=== PATIENT | female | born 1970 | race Caucasian/White ===

== ENCOUNTER → 2020-09-22 07:37 | Outpatient (CLI) | payer OTHER, SELFPAY ==
[2020-09-22 08:57] LABS: Magnesium 1.8 mg/dl (1.6-2.3); Uric Acid 5.1 mg/dl (2.5-6.2)
[2020-09-22 09:07] LABS: C-Reactive Protein 0.5 mg/L (0-4)
[2020-09-22 09:16] LABS: 25-OH Vitamin D, Total 35.9 ng/mL (30-100)
[2020-09-22 09:17] LABS: Free T4 (Free Thyroxine) 0.83 ng/dl (0.78-2.19)
[2020-09-22 09:19] LABS: Free Thyroxine Index 2.3 ug/dL (5.93-13.13); T4 (Thyroxine) 7.7 ug/dl (5.53-11.0); Triiodothryronine (T3) Uptake 30 % (23.5-40.5)
[2020-09-22 09:27] LABS: Thyroid Stimulating Hormone 2.72 uIU/mL (0.465-4.68)
[2020-09-22 09:45] LABS: Vitamin B12 901 pg/mL (239-931)
[2020-09-22 10:01] LABS: Erythrocyte Sedimentation Rate 16 mm/hr (0-30)
[2020-09-23 10:29] LABS: FSH 47.8 mIU/mL (.); LH 64.9 mIU/mL (.); Triiodothyronine (T3) Free 2.9 pg/mL (2.0-4.4)
[2020-09-23 13:40] LABS: RA Latex Turbid. <10.0 IU/mL (0.0-13.9)
[2020-09-23 16:26] LABS: Antinuclear Antibodies, IFA Positive (.)
[2020-09-24 00:11] LABS: Anti-Cyclic Citrullinated Pept 5 units (0-19)
== END ==
PROVIDERS: Visit Provider Nurse Practitioner
DX: R53.83 Other fatigue (principal); M25.50 Pain in unspecified joint
CPT/HCPCS: 82306; 82607; 83001; 83002; 83735; 84436; 84439; 84443; 84479; 84481; 84550; 85651; 86038; 86140; 86200; 86431

== ENCOUNTER → 2021-08-14 07:53 | Outpatient (CLI) | payer OTHER, SELFPAY ==
[2021-08-14 08:22] LABS: Basophils # 0.1 K/mm3 (0-0.2); Basophils % 1.3 % (0.1-2.0); Eosinophils # 0.2 K/mm3 (0.0-0.4); Hematocrit 40.7 % (37.0-47.0); Hemoglobin 13.4 g/dL (12.2-16.2); Lymphocytes # 2.4 K/mm3 (0.7-4.5); Lymphocytes % 48.7 % (10-50); Mean Corpuscular HGB Conc 32.9 g/dL (31.8-35.4); Mean Corpuscular Hemoglobin 30.5 pg (27.0-31.2); Mean Corpuscular Volume 92.7 fl (81-99); Mean Platelet Volume 8.2 fl (7.4-10.4); Monocytes # 0.2 K/mm3 (0.1-1.0); Monocytes % 4.5 % (1.7-9.3); Neutrophils # 2.1 K/mm3 (1.8-7.8); Neutrophils % 42.5 % (37.0-80.0); Platelet Count 231 K/mm3 (142-424); Red Blood Count 4.39 M/mm3 (4.20-5.40); Red Cell Distribution Width 13.7 % (11.5-17.5); White Blood Count 4.8 K/mm3 (4.8-10.8)
[2021-08-14 09:28] LABS: Chloride 105 mmol/L (98-107); Sodium 140 mmol/L (136-145)
[2021-08-14 09:29] LABS: Potassium 4.6 mmoL/L (3.5-5.1)
[2021-08-14 09:31] LABS: Alanine Aminotransferase 27 U/L (12-78); Albumin Level 4.2 g/dl (3.5-5.0); Albumin/Globulin Ratio 1.8 (1.1-1.8); Alkaline Phosphatase 70 U/L (38-126); Anion Gap 9.6 mEq/L (5-15); Aspartate Amino Transferase 31 U/L (14-36); Bilirubin,Total 0.3 mg/dl (0.2-1.3); Blood Urea Nitrogen 13 mg/dl (7-17); Calcium 9.2 mg/dl (8.4-10.2); Carbon Dioxide 30 mmol/L (22.0-30.0); Cholesterol 255 mg/dl (140-200); Estimated Glomerular Filt Rate 105 ml/min (>60); GFR (African American) 127 ML/MIN (>60); Globulin 2.4 g/dL (1.3-3.2); Glucose 107 mg/dl (74-100); Total Protein,Serum 6.6 g/dl (6.3-8.2); Triglycerides 323 mg/dl (30-150); VLDL Cholesterol 65 mg/dL (0-40)
[2021-08-14 09:32] LABS: Chol/HDL Ratio 7.5 (1-3.5); HDL Cholesterol 34 mg/dl (40-60)
[2021-08-14 10:01] LABS: Thyroid Stimulating Hormone 1.25 uIU/mL (0.465-4.68)
== END ==
PROVIDERS: PCP Nurse Practitioner Family; Visit Provider Nurse Practitioner Family
DX: Z00.00 Encounter for general adult medical examination without abnormal findings (principal)
CPT/HCPCS: 36415; 80053; 80061; 84443; 85025

== ENCOUNTER → 2021-10-14 08:05 | Outpatient (CLI) | payer OTHER, SELFPAY ==
--- NOTE | 2021-10-14 08:13 | MM_ITS ---
PROCEDURE INFORMATION: Exam: MG Bilateral Screening 3D Mammography Exam date and time: 10/14/2021 8:05 AM Age: 51 years old Clinical indication: Screening mammogram. TECHNIQUE: Imaging protocol: Bilateral Screening tomosynthesis and 2D mammography including computer-aided detection (CAD) when performed. COMPARISON: 1. MG DON SCRN MAMMO IMPL W/CAD BILAT - [facility] 01/31/2018 8:34 AM 2. MG SCRN MAMMO IMPL W/CAD BILAT 10/29/2016 3:40 PM 3. MG DIG MAMMO DIAG ALEX IMPLT 04/28/2015 11:14 AM 4. US BREAST LT LIMITED 08/21/2018 3:09 PM FINDINGS: MAMMOGRAPHY: Breast composition: The breast is heterogeneously dense, which may obscure small masses. Mass: Bilateral breast masses, previously assessed with ultrasound, have features suggestive of cysts. No dominant, new, or morphologically suspicious mass has developed to suggest malignancy. Architectural distortion: No new or suspicious architectural distortion. Calcifications: No new or suspicious calcifications are present Asymmetric density: No new or suspicious asymmetric density is present Skin thickening: None. Axillary adenopathy: None. Implants: Subpectoral saline augmentation implants are present. IMPRESSION: No mammographic evidence of malignancy. Recommend annual screening mammography unless otherwise clinically indicated. ASSESSMENT: BI-RADS category 2: Benign
== END ==
PROVIDERS: PCP Nurse Practitioner Family; Visit Provider Nurse Practitioner Family
DX: Z12.31 Encounter for screening mammogram for malignant neoplasm of breast (principal)
CPT/HCPCS: 77063; 77067

== ENCOUNTER 2022-11-03 08:20 | Emergency (ER) | payer BC, SELFPAY ==
[2022-11-03 08:21] VITALS: BP 114/78; PULSE 83; RESP 18; TEMP 36.7; O2SAT 98; BMI 29.2
--- NOTE | 2022-11-03 08:50 | EXP.UTC ---
Discharge Plan Disposition Patient Disposition: Home, Self-Care Condition: Good Referrals Follow up/Referrals: Violet Braxton [Primary Care Provider] - See instructions Activity Restrictions/Add. Instructions Additional Instructions/Restrictions: *Monitor Temp, Over the counter Motrin or Tylenol as directed/as needed Tylenol every 4 hours and Motrin every 6 hours (as long as your family doctor has told you that you can take it) for fever or pain. and straight to ER if unable to lower temp less than 101.0 after medication given *Warm salt water gargles may help to soothe the throat *Throat Lozenges? *Warm fluids like tea with honey may help to soothe the throat? *Sleep elevated *Humidifier/Vaporizer Follow up IMMEDIATELY for new or worsening symptoms or no Noticeable improvement over the next 48-72 hours. 911 for difficulty breathing or swallowing You was given paper prescriptions for augmenting and Prednisone Clinical Impressions Clinical Impression: Sinusitis Qualifiers: Sinusitis location: unspecified location Chronicity: unspecified Qualified Code(s): J32.9 - Chronic sinusitis, unspecified Stand Alone Forms Stand Alone Forms: Work/School Release Instructions Patient Instructions: DI for Sinusitis, Sinusitis Discharge ED Provider: Amy Cruz [facility] General Stated complaint: chest congestion, cough Mode of Arrival: Ambulatory Source of Information: Patient Limitations: No Limitations Time Seen by Provider: 11/03/22 08:51 Description of Symptoms (Recalled from Triage Doc. by RN): Patient reports head and chest congestion since Tuesday. HEENT Symptoms (Recalled from RN notes): Yes Resp Symptoms (Recalled from RN notes): No Skin Symptoms (Recalled from RN notes): No MS Symptoms (Recalled from RN notes): No Functional Status (Recalled from RN notes): wnl History of Present Illness Provider Complaint: Patient state that she started feeling bad on Tuesday with head and chest congestion States that at times she is coughing up some yellowish colored mucous but not sure if it is drianage in the back of her throat States that she has continued to have sinus congestion and pressure that has got worse and over all not feeling well so today when she was still having symptoms and despite trying OTC medications with no relief she came in to get checked Related Data Allergies Allergy/AdvReac Type Severity Reaction Status Date / Time No Known Allergies Allergy Verified 11/03/22 08:37 Worker's Comp Is this a Worker's Comp case?: No [facility] Disclaimer: The information contained in this section may have been updated after the patient was seen, as this information can be updated by other users. Social History Smoking Status: Unknown if ever smoked alcohol intake: never current occupational status: employed Travel in the last 8 weeks: None ROS Obtained: Yes All systems reviewed & no additional complaints except as documented and Yes Systems reviewed as appropriate & no additional complaints except as documented Constitutional Constitutional: Reports system reviewed and no additional complaints, except as documented, Reports as per HPI, Denies fever(s) and Reports headache(s) ENT Ears, Nose, Mouth, and Throat: Reports system reviewed and no additional complaints, except as documented, Reports as per HPI, Reports headache(s), Reports sinus pain, Reports sinus pressure and Reports sore throat Cardiovascular Cardiovascular: Reports system reviewed and no additional complaints, except as documented and Reports as per HPI Respiratory Respiratory: Reports system reviewed and no additional complaints, except as documented, Reports as per HPI, Reports chest congestion and Reports cough Gastrointestinal Gastrointestingal: Reports system reviewed and no additional complaints, except as documented and as per HPI Neurologic Neurologic: Reports headache(s) Physical Exam
[2022-11-03 09:31] VITALS: BP 114/78; PULSE 83; RESP 18; TEMP 36.7; O2SAT 98
== END 2022-11-03 09:32 | disposition home or self-care (01) ==
PROVIDERS: Emergency Provider Nurse Practitioner; PCP Nurse Practitioner Family
DX: J01.90 Acute sinusitis, unspecified (principal)
CPT/HCPCS: 99204; 99212; G0463

== ENCOUNTER 2022-12-17 18:50 | Emergency (ER) | payer BC, SELFPAY ==
[2022-12-17 18:50] VITALS: BP 132/76; PULSE 59; RESP 18; TEMP 36.9; O2SAT 96; BMI 29.2
--- NOTE | 2022-12-17 19:03 | EXP.UTC ---
Discharge Plan Disposition Patient Disposition: Home, Self-Care Condition: Good Prescriptions Prescriptions: New ibuprofen [IBU] 800 mg tablet 800 mg PO Q8HP PRN (Reason: Moderate Pain) Qty: 30 0RF promethazine 25 mg tablet 25 mg PO TID PRN (Reason: nausea and vomiting) Qty: 20 0RF No Action trazodone 50 mg tablet 50 mg PO DAILY Patient Comments: TAKE ONE TABLET BY MOUTH EVERY EVENING venlafaxine 150 mg capsule,extended release 24hr 150 mg PO DAILY Patient Comments: TAKE ONE CAPSULE BY MOUTH EVERY DAY --TAKE WITH FOOD-- topiramate 25 mg tablet 25 mg PO DAILY Patient Comments: TAKE ONE TABLET BY MOUTH EVERY DAY pantoprazole 40 mg tablet,delayed release (DR/EC) 40 mg PO DAILY Patient Comments: TAKE ONE TABLET BY MOUTH EVERY DAY BEFORE breakfast. Referrals Follow up/Referrals: Violet Braxton [Primary Care Provider] - See instructions Activity Restrictions/Add. Instructions Additional Instructions/Restrictions: Drink plenty of fluids. Take tylenol or ibuprofen for pain or fever. Take the medications as directed. Follow up with your regular doctor. GO TO THE ER FOR ANY WORSENING SYMPTOMS The promethazine will make you drowsy, so don't drive or operate heavy machinery after taking it. Clinical Impressions Clinical Impression: Headache Stand Alone Forms Stand Alone Forms: Work/School Release Instructions Patient Instructions: DI for Headache, Ketorolac Injection, Dexamethasone Injection Discharge ED Provider: [place] [facility] [place] General Stated complaint: h/a Time Seen by Provider: 12/17/22 19:03 History of Present Illness Provider Complaint: She c/o migraine headache for the past 3 days. Related Data Home Medications Medication Instructions Recorded Confirmed pantoprazole 40 mg tablet,delayed 40 mg PO DAILY 12/17/22 12/17/22 release topiramate 25 mg tablet 25 mg PO DAILY 12/17/22 12/17/22 trazodone 50 mg tablet 50 mg PO DAILY 12/17/22 12/17/22 venlafaxine 150 mg 150 mg PO DAILY 12/17/22 12/17/22 capsule,extended release 24 hr Previous Rx's Medication Instructions Recorded ibuprofen 800 mg tablet (IBU) 800 mg PO Q8HP PRN Moderate Pain 12/17/22 #30 tabs promethazine 25 mg tablet 25 mg PO TID PRN nausea and 12/17/22 vomiting #20 tabs Allergies Allergy/AdvReac Type Severity Reaction Status Date / Time No Known Allergies Allergy Verified 12/17/22 19:14 [facility] Disclaimer: The information contained in this section may have been updated after the patient was seen, as this information can be updated by other users. Social History Smoking Status: Unknown if ever smoked alcohol intake: never current occupational status: employed Travel in the last 8 weeks: None ROS Obtained: Yes All systems reviewed & no additional complaints except as documented Constitutional Constitutional: Denies chills, Denies fever(s) and Reports headache(s) Eyes Eyes: Denies eye discharge ENT Ears, Nose, Mouth, and Throat: Denies dizziness, Denies otalgia, Reports headache(s) and Denies sore throat Cardiovascular Cardiovascular: Denies chest pain Respiratory Respiratory: Denies shortness of breath, Denies chest congestion, Denies cough, Denies stridor and Denies wheezing Gastrointestinal Gastrointestingal: Denies nausea or vomiting Musculoskeletal Musculoskeletal: Reports system reviewed and no additional complaints, except as documented and Denies arthralgias Integumentary/Breasts Skin/Breast: Denies rash Neurologic Neurologic: Reports as per HPI, Denies dizziness, Reports headache(s) and Denies paresthesias Allergic/Immunologic Allergic/Immunologic: Denies wheezing Physical Exam General General appearance: alert and in no apparent distress Head Head exam: atraumatic, normocephalic and normal inspection Eye Eye exam: Present normal appearance, PER
[2022-12-17 19:31] VITALS: BP 132/76; PULSE 59; RESP 18; TEMP 36.9; O2SAT 96
== END 2022-12-17 19:31 | disposition home or self-care (01) ==
PROVIDERS: Emergency Provider Nurse Practitioner Family; PCP Nurse Practitioner Family
DX: G44.89 Other headache syndrome (principal)
CPT/HCPCS: 96372; 99212; 99214; G0463

== ENCOUNTER 2023-04-11 17:07 | Outpatient (CLI) | payer BC, SELFPAY ==
--- NOTE | 2023-04-11 | MM_ITS ---
PROCEDURE INFORMATION: Exam: MG Bilateral Screening 3D Mammography Exam date and time: 04/11/2023 5:03 PM Age: 53 years old Clinical indication: Screening examination TECHNIQUE: Imaging protocol: Bilateral Screening tomosynthesis and 2D mammography including computer-aided detection (CAD) when performed. COMPARISON: 1. MG MM DIG SC MAMM IMPLANT BI CAD 10/14/2021 8:05 AM 2. MG DNO SCRN MAMMO IMPL W/CAD BILAT - [facility] 01/31/2018 8:34 AM FINDINGS: MAMMOGRAPHY: Breast composition: The breasts are heterogeneously dense, which may obscure small masses. Mass: No new or suspicious masses Architectural distortion: None. Calcifications: No suspicious calcifications. Asymmetric density: None. Skin thickening: None. Axillary adenopathy: None. Implants: Subpectoral saline breast implants are present. IMPRESSION: No mammographic evidence of malignancy. Annual screening is recommended unless otherwise clinically indicated. ASSESSMENT: BI-RADS Category 1: Negative
== END 2023-04-11 23:59 ==
LOC: RAD 17:09
PROVIDERS: PCP Nurse Practitioner Family; Visit Provider Nurse Practitioner Family
DX: Z12.31 Encounter for screening mammogram for malignant neoplasm of breast (principal)
CPT/HCPCS: 77063; 77067

== ENCOUNTER 2024-07-10 16:32 | Outpatient (CLI) | payer OTHER, SELFPAY ==
[2024-07-10 21:42] LABS: Coronavirus 19, PCR Not Detected (NotDetected); Influenza A, PCR Not Detected (NotDetected); Influenza B, PCR Not Detected (NotDetected)
== END 2024-07-10 23:59 | disposition home or self-care (01) ==
LOC: LAB.DROPOF 07-11 12:11
PROVIDERS: PCP Student in an Organized Health Care Education/Training Program; Visit Provider Student in an Organized Health Care Education/Training Program
DX: R05.9 Cough, unspecified (principal); J02.9 Acute pharyngitis, unspecified
CPT/HCPCS: 87636

== ENCOUNTER 2024-09-20 09:40 | Outpatient (CLI) | payer OTHER, SELFPAY ==
--- NOTE | 2024-09-20 09:44 | XR_ITS ---
FINAL REPORT CLINICAL HISTORY: Left shoulder pain May 13 - dragged 15 ft by [place] dog. Pain, limited ROM COMPARISON: None FINDINGS: LEFT SHOULDER Three views of the left shoulder were obtained. There is no acute fracture or dislocation. Visualized joint spaces are normally aligned. Soft tissues are unremarkable. IMPRESSION: No acute bony abnormality. Reviewed, Interpreted and Dictated by Elvin Vargas MD Transcribed by Celena Duque Authenticated and . [facility]
--- OUTSIDE RECORDS SUMMARY | 2024-09-20 09:44 | XMS_ITS | Encounter Summary ---
Author Organization Healthcare Address [address] [place] [address] Care Team Providers Care Flatbed Driver Name Role Phone Violet Braxton APRN Primary Care Provider Reason for Visit * Reason Comments Med Refill Encounter Details Date Type Department Care Team (Late st Contact Info) Description 02/04/2021 Refill [facility] [address] [place] [address] Violet Braxton APRN [address] [place] [address] Social History Tobacco Use Types Packs/Day Years Used Date Smoking Tobacco: Never Comments Unknown Sex and Gender Information Value Date Recorded Sex Assigned at Female 01/04/2022 5:23 PM EDT Legal Sex Female 7:57 PM EDT Gender Identity Female 01/04/2022 5:23 PM EDT Sexual Orientation Straight 01/04/2022 5: 23 PM EDT documented as of this encounter Miscellaneous Notes * Telephone Encounter - Krystle Zimmerman MA - 02/09/2021 12:04 PM EST Scheduled. Has meds till apt documented in this encounter Plan of Treatment Not on file documented as of this encounter Visit Diagnoses Not on filedocumented in this encounter Additional Health Concerns Infection Onset Date Last Indicated Resolved Time COVID-19 Rule-Out 10/26/2023 10/26/2023 10/26/2023 7:24 PM EDT COVID 19 (Confirmed) 10/26/2023 10/26/2023 024 5:23 AM EDT documented as of this encounter Care Teams Flatbed Driver Relationship Specialty Start Date End Date Violet Braxton, [place] [address] [place] [address] PCP - General 07/18/20 documented as of this encounter
--- OUTSIDE RECORDS SUMMARY | 2024-09-20 09:44 | XMS_ITS | Data Portability ---
Author Organization [place] - [facility], Dariel Mathews Address [address] [place] [address] Assessment Encounter Date Assessment Date Assessment LastModified by Organization Details LastModified Time 06/21/2023 06/21/2023 This visit was completed via phone. Patient has provided consent per state regulations. Diagnosis, treatment options, risks of treatment discussed. Medication instructions, precautions, and side effects were reviewed. Instructed to call for any questions or concerns. Seek immediate care if with worsening or persistent symptoms. [email or web address] Not available 06/21/2023 13:33:28 Plan of Treatment Reminders Order Date Submit Date Provider Last Modified By Organization Details Last Modified Time Details Appointments None recorded. Lab None recorded. Referral None recorded. Procedures None recorded. Surgeries None recorded. Imaging None recorded. Medication Orders doxycyclin e monohydrat e 100 mg capsule [address], [address], [place], [address], 13:27:43 Patient TargetsNo targets recorded. Patient Instructions Encounter Date Encounter Id Patient Instructions Last Modified By Organization Details Last Modified Time 06/21/2023 [id number] I hope you feel better soon Niki.Take the antibiotics (doxycycline)as prescribed. To reach us, you can call us at . You can also send us a message via the portal for non-urgent concerns. If your symptoms get worse, please seek urgent care. Follow-up as needed. [email or web address] Not available 06/21/2023 13:36:10 Reason for Referral None Reported. Problems Name Problem SNOMED Code Status Onset Date Resolution Date Notes Provider Name and Address Organization Details Recorded Time Migraine [id number] Active Annabelle Webb RN [address], [place], [address] , [facility] 4 13:08:18 Acute sinusitis 57161377 Active 024 Ivana Christianson MD [address], [facility] [place], [address] , [facility] 4 12:40:10 Problem Notes None recorded. Procedures Surgical History Date Name Laterality Status Provider Name and Address Organization Details Recorded Time 02/05/20 06 Partial Hysterectomy completed Annabelle Webb RN [address], [place], [address], [facility] 06/21/2023 13:06:55 11/06/19 02 Arthroscopic Surgery completed Annabelle Webb RN [address], [place], [address], [facility] 06/21/2023 13:06:55 02/21/19 89 Caesarean Section completed Annabelle Webb RN [address], [place], [address], [facility] 06/21/2023 13:06:55 Imaging Results None recorded. Procedure Notes None recorded. Medical Equipment None Reported. Allergies No known drug allergies Medications Name Sig Start Date Stop Date Status Note LastModified by Organization Details LastModified Time venlafaxine ER 75 mg capsule,ext ended release 24 hr TAKE ONE CAPSULE BY MOUTH EVERY DAY --TAKE WITH FOOD-- active Not Available Not Available No t Available trazodone 50 mg tablet TAKE 1 TABLET BY MOUTH EVERY DAY active Not Available Not Available No t Available ibuprofen 800 mg tablet TAKE ONE TABLET BY MOUTH EVERY 8 HOURS NEEDED FOR MODERATE PAIN active Not Available Not Available No t Available phenazopyri dine 200 mg tablet TAKE 1 TABLET BY MOUTH THREE TIMES A DAY FOR 3 DAYS 06/20 completed Not Available Not Available Not Available prednisone 20 mg tablet TAKE TWO TABLETS BY MOUTH ONCE DAILY FOR 3 DAYS, TAKE ONE TABLET ONCE DAILY FOR 3 DAYS, THEN TAKE 1/2 TABLET ONCE DAILY FOR 3 DAYS --TAKE WITH FOOD-- active Not Available Not Available No t Available venlafaxine ER 150 mg capsule,ext ended release 24 hr TAKE 1 CAPSULE BY MOUTH EVERY DAY--TAKE WITH FOOD-- was taking 75 but just got this rx filled. active Not Available Not Available No t Available topiramate 25 mg tablet TAKE 2 TABLETs BY MOUTH EVERY DAY active Not Available Not Available No t Available rizatriptan 10 mg disintegrat ing tablet TAKE 1 TABLET BY MOUTH NEEDED active Not Available Not Available No t Available doxycycline monohydrate 100 mg capsule Take 1 capsule twice a day by oral route for 7 days. 2023 active Not Available Not Available Not Avai lable pantoprazol e 40 mg tablet,pierre yed release TAKE 1 TABLET BY MOUTH EVERY DAY BEFORE BREAKFAST active Not Available Not Available No t Available promethazin e 25 mg tablet TAKE ONE TABLET BY MOUTH THREE TIMES DAILY NEEDED FOR NAUSEA AND VOMITING active Not Available Not Available No t Available Effexor 75 mg tablet 06/20 completed Not Available Not Available Not Available amoxicillin 875 mg-potassiu m clavulanate 125 mg tablet TAKE ONE TABLET BY MOUTH EVERY TWELVE HOURS FOR 7 DAYS -- FINISH ALL MEDICINE -- 06/20 completed Not Available Not Available Not Available escitalopra m 10 mg tablet TAKE 1 TABLET BY MOUTH EVERY DAY active Not Available Not Available No t Available nitrofurant oin monohydrate /macrocryst als 100 mg capsule TAKE 1 CAPSULE BY MOUTH EVERY 12 HOURS 06/20 completed Not Available Not Available Not Available Vitals Date Recorded Body height Body mass index (BMI) Body weight Systolic And Diastolic Provider Name and Address Organization Details Last Updated DateTime 06/21/2023 160.02 cm 28.3 kg/m2 13827.78 g 120/70 mm[Hg] Annabelle Webb RN [address], [place], [address], [place] [facility] 06/21/2023 13:11:57 Social History Question Answer Notes LastModified by Organizat ion Details LastModified Time Tobacco Smoking Status Never Smoker Annabelle Webb RN [address], [place], [address], [place] [facility] 06/21/2023 13:06:54 How Much Tobacco Do You Chew? None Information not available 06/21/2023 What Is The Highest Grade Or Level Of School You Have Completed Or The Highest Degree You Have Received? [id number] Information not available 06/21/2023 Cigar Smoking No Information not available 06/21/2023 Does Anyone Insult Or Talk Down To You? Never Information not available 06/21/2023 Does Anyone Physically Hurt You At Home? Never Information not available 06/21/2023 Does Anyone Scream Or Curse At You? Never Information not available 06/21/2023 Does Anyone Threaten/bully You With Harm? Never Information not available 06/21/2023 Sleep Habits Decent Information not available 06/21/2023 GENERAL HEALTH -- In General, I Describe My Health As: Excellent [email or web address]-309 Information not available 08/10/2022 GENERAL HEALTH -- Currently, How Would You Rate Your Quality Of Life? Excellent [email or web address]-309 Information not available 08/10/2022 PURPOSE -- For The Most Part, I Am Satisfied With The Balance Between My Work Life And Personal Life. Strongly Agree [email or web address]-309 Information not available 08/10/2022 PURPOSE -- In Most Ways My Life Is Close To My [place]. 7 - Strongly Agree [email or web address]-309 Information not available 08/10/2022 PURPOSE -- The Conditions Of My Life Are Excellent. 7 - Strongly Agree [email or web address] Information not available 08/10/2022 PURPOSE -- I Am Satisfied With My Life. 7 - Strongly Agree [email or web address]-309 Information not available 08/10/2022 PURPOSE -- So Far I Have Gotten The Important Things I Want In Life. 7 - Strongly Agree [email or web address] Information not available 08/10/2022 PURPOSE -- If I Could Live My Life Over, I Would Change Almost Nothing. 6 - Agree [email or web address] Information not available 08/10/2022 STRESS -- In The Last Month, How Often Have You Been Upset Because Of Something That Happened Unexpectedly? 1 - Almost Never [email or web address] Information not available 08/10/2022 STRESS -- In The Last Month, How Often Have You [place] That You Were Unable To Control The Important Things In Your Life? 1 - Almost Never [email or web address] Information not available 08/10/2022 STRESS -- In The Last Month, How Often Have You [place] Nervous And Stressed? 3 - Fairly Often [email or web address] Information not available 08/10/2022 STRESS -- In The Last Month, How Often Have You [place] Confident About Your Ability To Handle Your Personal Problems? 4 - Very Often [email or web address] Information not available 08/10/2022 STRESS -- In The Last Month, How Often Have You [place] That Things Were Going Your Way? 4 - Very Often [email or web address] Information not available 08/10/2022 STRESS -- In The Last Month, How Often Have You Found That You Could Not [place] With All The Things That You Had To Do? 2 - Sometimes [email or web address] Information not available 08/10/2022 STRESS -- In The Last Month, How Often Have You Been Able To Control Irritations In Your Life? 4 - Very Often [email or web address] Information not available 08/10/2022 STRESS -- In The Last Month, How Often Have You [place] That You Were On Top Of Things? 2 - Sometimes [email or web address] Information not available 08/10/2022 STRESS -- In The Last Month, How Often Have You Been Angered Because Of Things That Happened That Were Outside Of Your Control? 1 - Almost Never [email or web address] Information not available 08/10/2022 STRESS -- In The Last Month, How Often Have You [place] Difficulties Were Piling Up So High That You Could Not Overcome Them? 2 - Sometimes [email or web address] Information not available 08/10/2022 SLEEP -- Select All That Apply Regarding Your Sleep I Have A Hard Time Falling Asleep Or Staying Asleep, I Have Restless Sleep, I Have Been Told Or Know That I Snore [email or web address]-309 Information not available 08/10/2022 SLEEP -- How Many Hours Of Sleep Do You Get On Average Each Night? 6 Hours [email or web address]-309 Information not available 08/10/2022 SLEEP -- I Usually Wake Up Feeling Rested. Disagree [email or web address]-309 Information not available 08/10/2022 Nutrition -- What Is The Average Number Of Times Per Week You Dine Out Including In Restaurant, Carry Out, Or Food Delivery? 4 Or More [email or web address] Information not available 08/10/2022 Nutrition -- On Average, How Many 8 Oz. Glasses Of Water Do You Drink Each Day? 3 To 5 [email or web address] Information not available 08/10/2022 Nutrition -- How Often Do You Consume Sugary Food/drinks? Examples Are Dessert, Candy Or Sweetened Drinks (juice, Sweetened Coffee, Soda) 6-7 Days A Week [email or web address] Information not available 08/10/2022 Nutrition -- How Often Do You Eat 5 Or More Fruits/vegetable Servings A Day? 2-3 Days A Week [email or web address] Information not available 08/10/2022 Physical Activity -- How Often Do You Exercise? I Do Not Regularly Exercise [email or web address]-309 Information not available 08/10/2022 Physical Activity -- On Average, How Many Minutes Do You Spend Doing Aerobic Exercise Weekly (walking, Running, Biking, And Other Aerobic Activities)? I Do Not Regularly Exercise [email or web address] Information not available 08/10/2022 Physical Activity -- On Average, How Many Times A Week Do You Do Resistance Or Strengthening Exercises? I Do Not Regularly Engage In Strength Training [email or web address] Information not available 08/10/2022 Physical Activity -- How Many Days A Week Do You Do Stretching Exercises? I Do Not Typically Do Any Stretching Training [email or web address] Information not available 08/10/2022 Tobacco -- Please Indicate The Statement That Fits Your Current Use Of Tobacco (cigarettes, Ecigarettes/vapin g, Smokeless Tobacco, Cigars, Pipes, Light Cigarettes)? I Have Never Used Tobacco Products [email or web address] Information not available 08/10/2022 Tobacco -- If You Currently Use Tobacco, On Average; How Many Cigarettes, Cigars, Etc. Per Day? 0 [email or web address]-309 Information not available 08/10/2022 TOBACCO -- If You Use Tobacco, How Long Have You Been Using Tobacco? (in Years) 0 [email or web address]-309 Information not available 08/10/2022 RISK BEHAVIOR -- How Often Do You Wear A Seat Belt In A Motor Vehicle? Always [email or web address]-309 Information not available 08/10/2022 RISK BEHAVIOR -- How Often Do You Wear A Helmet When Necessary, Such As; Riding A Motorcycle, Bicycle, Or Recreation Vehicle Or While Participating In High-impact Sports? Never [email or web address]-309 Information not available 08/10/2022 RISK BEHAVIOR -- Do You Have A Smoke Detector In Your Home? Yes [email or web address]-309 Information not available 08/10/2022 RISK BEHAVIOR -- Do You Have A Carbon Monoxide Detector In Your Home? Yes [email or web address]-309 Information not available 08/10/2022 RISK BEHAVIOR -- How Often Do You Protect Your Skin From Sun Exposure When Outside (for Example, Sunscreen With A SPF 15 Or Higher And/or Protective Clothing)? Some Of The Time [email or web address]-309 Information not available 08/10/2022 RISK BEHAVIOR -- How Often Do You Have A Drink Containing Alcohol? 2 To 3 Times A Week [email or web address]-309 Information not available 08/10/2022 RISK BEHAVIOR -- How Many Drinks Containing Alcohol Do You Have On A Typical Day When You Are Drinking? 1 Or 2 [email or web address]-309 Information not available 08/10/2022 RISK BEHAVIOR -- In The Past Year, How Often Have You Used An Illegal Drug Or A Prescription Drug For A Non-medical Reason? Never [email or web address]-309 Information not available 08/10/2022 READINESS TO CHANGE -- Improve My Overall Health Planning A Change In The Next 6 Months [email or web address]-309 Information not available 08/10/2022 READINESS TO CHANGE -- If There Was One Thing You Could Work On To Improve The Way You Feel And Function What Would You Choose Grieve - Loss Of Step-dad 2018 & Mom 2021 [email or web address] Information not available 08/10/2022 FINANCIAL -- I Could Handle A Major Unexpected Expense 4 - Not At All [email or web address]-309 Information not available 08/10/2022 FINANCIAL -- I Am Securing My Financial Future Somewhat [email or web address]-309 Information not available 08/10/2022 FINANCIAL -- I Have Money Left Over At The End Of The Month 2 - Somewhat [email or web address]-309 Information not available 08/10/2022 SOCIAL DETERMINANTS -- I Have A Close Friend, Family Member Or Support System I Can Talk To About Important Issues. Strongly Agree [email or web address]-309 Information no t available 08/10/2022 SOCIAL DETERMINANTS -- How Often Do You Feel Lonely? Rarely API-309 Information not available 08/10/2022 SOCIAL DETERMINANTS -- During The Past Year, Have You Worried About The Following? Select All That Apply. None Of These Worries Apply [email or web address]-309 Information not available 08/10/2022 How Often Do You Have Six Or More Drinks On One Occasion? Never [email or web address]-309 Information not available 08/10/2022 Have You Ever Served In The ? No Information not available 06/21/2023 What Was The Date Of Your Most Recent Tobacco Screening? 06/21/2023 Information not available 06/21/2023 Has Tobacco Cessation Counseling Been Provided? No Information not available 06/21/2023 Sex: Unknown Functional Status Question Answer Note LastModified by Organizat ion Details LastModified Time Do you or have you ever used any other forms of tobacco or nicotine? No Information not available 06/21/2023 What is your level of alcohol consumption? Occasional Information not available 06/21/2023 Do you or have you ever used smokeless tobacco? Never used smokeless tobacco Information not available 06/21/2023 What is your occupation? RN Information not available 06/21/2023 Mental Status None recorded. Family History Relationship Description Onset Age of this Age Resolved Age Notes LastModified by Organization Details LastModified Time Mother Chronic obstructive pulmonary disease astrate Not available 2023 13:06:53 Mother Malignant neoplastic disease astrate Not available 2023 13:06:53 Father Chronic obstructive pulmonary disease astrate Not available 2023 13:06:53 Medical History No medical history recorded. Gynecological HistoryNo gynecological history recorded. Obstetrics History GPAL:G 0 P 0 0 0 0 Past Encounters Encounter ID Performer Location Encounter Start Date Encounter Closed Date Diagnosis/Indication Diagnosis SNOMED-CT Code Diagnosis ICD10 Code Diagnosis Note [id number] [facility] [address], [place] [address] [place] [address] 4 08/11/2022 17:58:47 08/11/2022 18:56:24 [id number] Ivana Christianson MD [facility] [address], [place] [address] [place] [address] 4 06/21/2023 13:04:51 06/21/2023 13:30:14 Acute sinusitis [id number] J01.90 -sinusitis x 2 weeks, continue symptomati c treatment- can start antibiotic s-follow-u p as needed or seek urgent care if getting worse Health Concerns Section Related Observation LastModified by Organization Detai ls LastModified Time None Recorded Concern Status LastModified by Organization Details LastModified Time None Recorded Advance Directives Directive None Recorded Payers Insurance Date Sequence Insurance Name Policy Number Policy Estevez Covered Member ID Estevez Member ID Guarantor Name 09/12/2023 1 [facility] (PPO) [id number] 2 Jody Vega [id number] Jody Vega 09/12/2023 1 [facility] - (PPO) [id number] 2 Jody Vega [id number] Jody Vega Notes Date Note Type Note Provider Name and Address Organization Details Recorded Time 06/21/2023 text/html TELEPHONIC CONSULTATION Patient name, , and emergency contact verified. Patient Location -[place] Provider location - [place]. Telephonic questionnaires reviewed. Telemedicine limitations were discussed with the patient. The patient verbally consented to consultation and treatment with telehealth today written consent on file. 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
--- OUTSIDE RECORDS SUMMARY | 2024-09-20 09:44 | XMS_ITS | Encounter Summary ---
Author Organization Healthcare Address [address] [place] [address] Care Team Providers Care Irs Agent Name Role Phone Violet Braxton APRN Primary Care Provider [phone] Reason for Visit * Reason Onset Date Comments Med Refill 08/02/2024 Encounter Details Date Type Department Care Team (Late st Contact Info) Description 08/02/2024 Refill [facility] [address] [place] [address] Violet Braxton APRN [address] [place] [address] Social History Tobacco Use Types Packs/Day Years Used Date Smoking Tobacco: Never Passive Smoke Exposure: Past Smokeless Tobacco: Never Alcohol Use Standard Drinks/Week Comments Not Currently 0 (1 standard drink = 0.6 oz pur e alcohol) Humiliation, Afraid, Rape, and Kick questionnair e Answer Date Recorded Within the last year, have y ou been afraid of your partner or ex-partner? No 05/22/2024 Within the last year, have y ou been humiliated or emotionally abused in other ways by your partner or ex-partner? No Within the last year, have y ou been kicked, hit, slapped, or otherwise physically hurt by your partner or ex-partner? No 05/22/2024 Within the last year, have y ou been raped or forced to have any kind of sexual activity by your partner or ex-partner? No 05/22/2024 PHQ-2 Answer Date Recorded Patient Health Questionnaire-2 Score 2 05/24/2024 Hunger Vital Sign Answer Date Recorded Within the past 12 months, y ou worried that your food would run out before you got the money to buy more. Never true 05/23/19 25 Within the past 12 months, t he food you bought just didn't last and you didn't have money to get more. Never true 05/22/2024 PRAPARE - Transportation Answer Date Re corded In the past 12 months, has l ack of transportation kept you from medical appointments or from getting medications? No 05/05 In the past 12 months, has l ack of transportation kept you from meetings, work, or from getting things needed for daily living? No 05/22/2024 Housing Stability Vital Sign Answer Teo e Recorded In the last 12 months, was t here a time when you were not able to pay the mortgage or rent on time? No 09/02/2023 In the last 12 months, how many places have you lived? 1 09/02/2023 In the last 12 months, was t here a time when you did not have a steady place to sleep or slept in a chcf (including now)? No 09/02/2023 PHQ-9 Answer Date Recorded Patient Health Questionnaire-9 Score 2 05/24/2024 Housing Stability Vital Sign Answer Teo e Recorded In the last 12 months, was t here a time when you were not able to pay the mortgage or rent on time? No 05/22/2024 In the past 12 months, how m any times have you moved where you were living? 0 05/22/2024 At any time in the past 12 m [facility], were you homeless or living in a chcf (including now)? No 05/22/2024 Utilities Answer Date Recorded In the past 12 months has th e iOpener, gas, oil, or water company threatened to shut off services in your home? No 05/22/2024 PHQ-2A Answer Date Recorded Patient Health Questionnaire-2 Score 3 08/19/2022 Comments Unknown Sex and Gender Information Value Date Recorded Sex Assigned at Female 01/04/2022 5:23 PM EDT Legal Sex Female 7:57 PM EDT Gender Identity Female 01/04/2022 5:23 PM EDT Sexual Orientation Straight 01/04/2022 5: 23 PM EDT documented as of this encounter Plan of Treatment Not on file documented as of this encounter Visit Diagnoses Not on filedocumented in this encounter Additional Health Concerns Assessment Noted Time PHQ-9 Depression Total Score: 2 05/25/19 25 4:26 PM EDT A fall risk assessment has been complete d for the patient 03/04/2021 1:38 PM EST A Body Mass Index follow-up plan has been documented for the patient 05/24/2024 5:07 PM EDT documented as of this encounter Care Teams Irs Agent Relationship Specialty Start Date End Date Violet Braxton APRN [address] [place] [address] PCP - General 07/18/20 documented as of this encounter
--- OUTSIDE RECORDS SUMMARY | 2024-09-20 09:44 | XMS_ITS | Encounter Summary ---
Author Organization Healthcare Address [address] [place] [address] Care Team Providers Care Miner Placer Name Role Phone Violet Braxton APRN Primary Care Provider [phone] Reason for Visit * Reason Comments Med Refill Encounter Details Date Type Department Care Team (Late st Contact Info) Description 01/24/2021 [facility]ill [facility] [address] [place] [address] Violet Braxton APRN [address] [place] [address] Social History Tobacco Use Types [...] documented as of this encounter Care Teams Miner Placer Relationship Specialty Start Date End Date Violet Braxton APRN [address] [place] [address] PCP - General 07/18/20 documented as of this encounter
--- OUTSIDE RECORDS SUMMARY | 2024-09-20 09:44 | XMS_ITS | Encounter Summary ---
Author Organization Healthcare Address [address] [place] [address] Care Team Providers Care Voltmeter Operator Name Role Phone Violet Braxton APRN Primary Care Provider Reason for Visit * Reason Comments Med Refill Encounter Details Date Type Department Care Team (Late st Contact Info) Description 03/10/2022 Refill [facility] [address] [place] [address] Violet Braxton APRN [address] [place] [address] Generalized anxiety disorder Social History Tobacco Use Types Packs/Day Years Used Date Smoking Tobacco: Never Smokeless Tobacco: Never PHQ-2 Answer Date Recorded Patient Health Questionnaire-2 Score 6 03/04/2021 Comments Unknown Sex and Gender Information Value Date Recorded Sex Assigned at Female 01/04/2022 5:23 PM EDT Legal Sex Female 7:57 PM EDT Gender Identity Female 01/04/2022 5:23 PM EDT Sexual Orientation Straight 01/04/2022 5: 23 PM EDT documented as of this encounter Miscellaneous Notes * Telephone Encounter - Jade Crocker Tejas - 03/11/2022 8:20 AM EST Per protocol, 3 medication(s), buspirone, pantoprazole and trazodone, has been approved for 90 day supply with 0 refill(s) to Clinic pharmacy. documented in this encounter Plan of Treatment Not on file documented as of this encounter Visit Diagnoses Diagnosis Generalized anxiety disorder documented in this encounter Additional Health Concerns Infection Onset Date Last Indicated Resolved Time COVID-19 Rule-Out 10/26/2023 10/26/2023 10/26/2023 7:24 PM EDT COVID 19 (Confirmed) 10/26/2023 10/26/2023 024 5:23 AM EDT Assessment Noted Time PHQ-9 Depression Total Score: 021 1:38 PM EST A fall risk assessment has been complete d for the patient 03/04/2021 1:38 PM EST documented as of this encounter Care Teams Voltmeter Operator Relationship Specialty Start Date End Date Violet Braxton APRN [address] [place] [address] PCP - General 07/18/20 documented as of this encounter
--- OUTSIDE RECORDS SUMMARY | 2024-09-20 09:44 | XMS_ITS | Clinical Summary ---
Author Organization Healthcare Address [address] [place] [address] Care Team Providers Care Natural Fabricator Name Role Phone Violet Braxton APRN Primary Care Provider [phone] Allergies No known active allergies Medications Multiple Vitamins-Minerals (MULTI FOR HER 50+ PO) 0 Active Black Pepper-Turmeric (Turmeric Curcumin) 5-1000 MG capsule 0 Active diclofenac (Voltaren) 1 % topical gel Voltaren 1 % topical gel APPLY 2 GRAMS TO THE AFFECTED AREA(S) BY TOPICAL ROUTE 4 TIMES PER DAY Active triamcinolone (Nasacort Allergy 24HR) 55 MCG/ACT nasal inhaler 1 (one) time each day. Active ondansetron (Zofran) 8 MG tablet TAKE ONE TABLET BY MOUTH EVERY 8 HOURS NEEDED FOR NAUSEA AND VOMITING 30 tablet 1 5 Active topiramate (Topamax) 50 MG tabletIndications:C hronic migraine without aura without status migrainosus, not intractable Take 1 tablet (50 mg) by mouth in the morning and 1 tablet (50 mg) before bedtime. 180 tablet 3 5 05/25/19 26 Active traZODone (Desyrel) 50 MG tablet Take 1 tablet (50 mg) by mouth daily. 90 tablet 3 5 05/25/19 26 Active busPIRone (Buspar) 10 MG tablet Take 1 tablet (10 mg) by mouth in the morning and 1 tablet (10 mg) in the evening and 1 tablet (10 mg) before bedtime. 270 tablet 3 5 05/25/19 Active venlafaxine XR (Effexor-XR) 150 MG 24 hr capsuleIndications: Generalized anxiety disorder Take 1 capsule (150 mg) by mouth daily. Take with food. 90 capsule 3 5 05/25/19 Active pantoprazole (Protonix) 40 MG EC tablet Take 1 tablet (40 mg) by mouth daily before breakfast. 90 tablet 3 5 05/25/19 26 Active montelukast (Singulair) 10 MG tabletIndications:U pper respiratory tract infection, unspecified type,Allergic rhinitis, unspecified seasonality, unspecified trigger Take 1 tablet (10 mg) by mouth nightly. 90 tablet 3 5 05/25/19 Active escitalopram (Lexapro) 10 MG tabletIndications:M ajor depressive disorder, recurrent, moderate (CMS/HCC) Take 1 tablet (10 mg) by mouth daily. 90 tablet 3 5 05/25/19 Active rizatriptan BRAKE ENGINEER (Maxalt-BRAKE ENGINEER) 10 MG disintegrating tablet Dissolve 1 tablet on the tongue as needed for migraine. 9 tablet 3 5 Active Active Problems No known active problems Encounters Date Type Department Care Team Description 08/02/2024 Refill [facility] Medicine [address] [place] [address] Violet Braxton, CLAYTON from Last 3 Months Social History Tobacco Use Types Packs/Day Years Used Date Smoking Tobacco: Never Passive Smoke Exposure: Past Smokeless Tobacco: Never Tobacco Cessation:Counseling Given: Not Answered Alcohol Use Standard Drinks/Week Comments Not Currently [...] money to buy more. Never true 05/23/19 Within the past 12 months, t he [...] place to sleep or slept in a [facility] (including now)? No 09/02/2023 PHQ-9 Answer Date [...] any time in the past 12 m [facility], were you homeless or living in a m[facility]p (including now)? No 05/22/2024 Utilities Answer Date Recorded In the past 12 months has th e electric, gas, oil, or water company threatened to shut off services in your home? No 05/22/2024 PHQ-2A Answer Date Recorded Patient Health Questionnaire-2 Score 3 08/19/2022 Comments Unknown Sex and Gender Information Value Date Recorded Sex Assigned at Female 01/04/2022 5:23 PM EDT Legal Sex Female 7:57 PM EDT Gender Identity Female 01/04/2022 5:23 PM EDT Sexual Orientation Straight 01/04/2022 5: 23 PM EDT Last Filed Vital Signs Vital Sign Reading Time Taken Comments Blood Pressure 110/70 05/24/2024 4:22 PM EDT Pulse 77 05/24/2024 4:22 PM EDT Temperature 36.6 C (97.8 F) 05/24/2024 4:22 PM EDT Respiratory Rate 16 05/24/2024 4:22 PM EDT Oxygen Saturation 96% 05/24/2024 4:22 PM EDT Inhaled Oxygen Concentration - - Weight 78 kg (172 lb) 05/24/2024 4:22 PM EDT Height 160 cm (5' 3 ) 05/24/2024 4:22 PM EDT Body Mass Index 30.47 05/24/2024 4:22 PM EDT Plan of Treatment Health Maintenance Due Date Last Done Comments [facility]-HIV Screening 1968 [facility]-Hepatitis C Screening 1968 [facility]-Infant/Child/Adol SDOH Screenings 1970 [facility]-Hepatitis B Vaccines (1 of 3 - 19+ 3-dose series) 01/11/1987 [facility]-Pap Smear 01/11/1989 [facility]-Cervical Cancer Screening 01/11/1998 [facility]-HPV/Cotest 01/11/1998 CT Colonography 01/11/2013 [facility]-DNA 01/11/2013 FIT 01/11/2013 FOBT 01/11/2013 Sigmoidoscopy 01/11/2013 [facility]-Pneumococcal Vaccine: 50+ Years (1 of 1 - PCV) 01/11/2018 [facility]-Zoster Vaccines (1 of 2) 01/11/2018 [facility]-NEFMX-80 Vaccine (4 - season) 2023 12/30/2021, 06/07/2020, 05/10/2020 [facility]-Influenza Vaccine (#1) 11/05/202402/26, 05/16/2023, 11/29/2017, Additional history exists [facility]- SDOH Screenings 11/22/2024 [facility]-Adult SDOH Screenings 11/22/2024 05/22/2024 [facility]-Breast Cancer Screening 04/11/2025 04/11/2023, 1 04/12/2017 [facility]-Depression Screening 05/24/2025 05/24/2024, 05/06 Colonoscopy 03/02/2028 03/02/2018 [facility]-Colorectal Cancer Screening 03/02/2028 [facility]-DTaP,Tdap,and Td Vaccines (3 - Td or Tdap) 11/29/2031 11/28/2021, 08/18/2016 [facility]-Hepatitis A Vaccines Aged Out 11/29/2017 No longer eligible based on patient's age to complete this topic [facility]-Diabetes: Hemoglobin A1C Discontinued 09/02/2023, 08/19/2022 [facility]-Obesity Intervention Completed 025, 10/26/2023, 09/02/2023, Additional history exists HPV Vaccines Aged Out No longer eligi ble based on patient's age to complete this topic [facility]-HIB Vaccines Aged Out No longer e ligible based on patient's age to complete this topic [facility]-IPV Vaccines Aged Out No longer e ligible based on patient's age to complete this topic [facility]-Rotavirus Vaccines Aged Out No lo nger eligible based on patient's age to complete this topic Procedures Procedure Name Priority Date/Time Associated Diagnosis Comments HEMOGLOBIN A1C Routine 09/02/2023 9:24 AM EDT Annual physical exam MAMMOGRAPHY EXTERNAL RESULTS 04/11/2023 COLONOSCOPY EXTERNAL RESULT 03/02/2018 from Last 3 Months or Most Recently Relevant to Health Maintenance Results * (ABNORMAL) Hemoglobin A1c (09/02/2023 9:24 AM EDT) Hemoglobin A1c 5.9(H) <5.7 % 09/02/2023 1:20 PM EDT [facility] Blood Venous blood specimen / Unknown Venipuncture / Unknown 09/02/2023 9:24 AM EDT 09/02/2023 9:24 AM EDT Narrative [facility] - 09/02/2023 1:20 PM EDT HA1C Interpretive Data: Diagnosis of Diabetes: Diabetic > or = 6.5% Pre-diabetic 5.7 to 6.4% Non-diabetic < or = 5.6% Glycemic Targets for Type I and Type II Diabetics: Non- Adults <7.0% Adults <6.0% Children and Adolescents <7.5% Source: [place] [employer]. Standards of medical care in diabetes,2017. Diabetes Care.2017:40 (suppl 1):S1-S135. HbA1c assay performed by an ion-exchange chromatography method that is certified traceable to the DCCT. Violet Braxton SPOT BILLING CLERK LAB BLOOD ORDERABLES Final Result Performing Organization Address City/State/[facility] Co de Phone Number [facility] [address] [place] [address] * MAMMOGRAPHY EXTERNAL RESULTS (04/11/2023) Anatomical Region Laterality Modality Mammography Narrative 04/11/2023 Ordered by an unspecified provider. us External Provider IMG BI PROCEDURES Final Result * COLONOSCOPY EXTERNAL RESULT (03/02/2018) Anatomical Region Laterality Modality Endoscopy Narrative 03/02/2018 Ordered by an unspecified provider. us External Provider GI PROCEDURE ORDERABLES Final Result from Last 3 Months or Most Recently Relevant to Health Maintenance Insurance [facility] Care Teams Natural Fabricator Relationship Specialty Start Date End Date Violet Braxton, CLAYTON [address] [place] [address] PCP - General 07/18/20
--- OUTSIDE RECORDS SUMMARY | 2024-09-20 09:44 | XMS_ITS | Encounter Summary ---
Author Organization Healthcare Address [address] [place] [address] Care Team Providers Care Ammunition Components Inspector Name Role Phone Violet Braxton APRN Primary Care Provider Reason for Visit * Reason Comments Med Refill Encounter Details Date Type Department Care Team (Late st Contact Info) Description 12/19/2020 Refill Family [facility] Community Medicine [address] [place] [address] Violet Braxton APRN [address] [place] [address] Social History Tobacco Use Types [...] documented as of this encounter Care Teams Ammunition Components Inspector Relationship Specialty Start Date End Date Violet Braxton APRN [address] [place] [address] PCP - General 07/18/20 documented as of this encounter
== END 2024-09-20 23:59 | disposition home or self-care (01) ==
LOC: RAD 09:41
PROVIDERS: PCP Nurse Practitioner Family; Visit Provider Physician Assistant
DX: M25.512 Pain in left shoulder (principal); W54.8XXA Other contact with dog, initial encounter
CPT/HCPCS: 73030

== ENCOUNTER 2024-09-27 07:13 | Outpatient (CLI) | payer OTHER, SELFPAY ==
--- NOTE | 2024-09-27 07:00 | MR_ITS ---
FINAL REPORT TECHNIQUE: Multiplanar MR of the left shoulder without contrast CLINICAL HISTORY: Left Shoulder Pain. limited rom. weakness in arm. shoulder pain. symptoms since being pulled by dog 2 months ago. COMPARISON: None FINDINGS: Marrow signal: Unremarkable Glenohumeral joint: Physiologic effusion. No significant degenerative changes. AC joint: No obvious impingement. No significant hypertrophic changes. Rotator cuff: Tendinosis of the supraspinatus and infraspinatus tendons without evidence of tear. Labrum: Sublabral foramen of the anterior labrum. No evidence of labral tear. Biceps tendon: Intra-articular long head biceps tendon intact. IMPRESSION: No evidence of rotator cuff or labral tear. Reviewed, Interpreted and Dictated by Elvin Vargas MD Transcribed by Susy Swan Authenticated and [facility]
--- OUTSIDE RECORDS SUMMARY | 2024-09-27 07:16 | XMS_ITS | Encounter Summary ---
Author Organization Healthcare Address [address] [place] [address] Care Team Providers Care Product Marketing Manager Name Role Phone Violet Braxton APRN Primary Care Provider [phone] Reason for Visit * Reason Onset Date Comments Med Refill 08/02/2024 Encounter Details Date Type Department Care Team (Late st Contact Info) Description 08/02/2024 [facility] [facility] [address] [place] [address] Violet Braxton APRN [address] [place] [address] Social History Tobacco Use Types [...] place to sleep or slept in a fci (including now)? No 09/02/2023 PHQ-9 Answer Date [...] any time in the past 12 m [facility], were you homeless or living in a fci (including now)? No 05/22/2024 Utilities Answer Date Recorded In the past 12 months has th e [employer], gas, oil, or water company threatened to [...] documented as of this encounter Care Teams Product Marketing Manager Relationship Specialty Start Date End Date Violet Braxton APRN [address] [place] [address] PCP - General 07/18/20 documented as of this encounter
--- OUTSIDE RECORDS SUMMARY | 2024-09-27 07:16 | XMS_ITS | Encounter Summary ---
Author Organization Healthcare Address [address] [place] [address] Care Team Providers Care Leasing Consultant Name Role Phone Violet Braxton APRN Primary Care Provider Reason for Visit * Reason Comments Med Refill Encounter Details Date Type Department Care Team (Late st Contact Info) Description 02/04/2021 Refill [facility] [address] [place] [address] Violet Braxton APRN [address] [place] [address] Social History Tobacco Use Types [...] documented as of this encounter Care Teams Leasing Consultant Relationship Specialty Start Date End Date Violet Braxton, CLAYTON [address] [place] [address] PCP - General 07/18/20 documented as of this encounter
--- OUTSIDE RECORDS SUMMARY | 2024-09-27 07:16 | XMS_ITS | Data Portability ---
Author Organization [place] - [facility], Dariel Mathews Address [address] [place] [address] Assessment Encounter Date Assessment Date Assessment LastModified [...] monohydrat e 100 mg capsule [address], [address], [place], [address], 13:27:43 Patient TargetsNo targets recorded. Patient Instructions Encounter Date Encounter Id Patient Instructions Last Modified By Organization Details Last Modified Time 06/21/2023 [id number] I hope you feel better soon [email or web address] [...] and Address Organization Details Recorded Time Migraine [id number] Active Annabelle Webb RN [address], [place], [address] , [facility] 4 13:08:18 Acute sinusitis [id number] Active 024 Ivana Christianson MD [address], [place], [address] , [facility] 4 12:40:10 Problem Notes None recorded. Procedures Surgical History Date Name Laterality Status Provider Name and Address Organization Details Recorded Time 02/05/20 06 Partial Hysterectomy completed Annabelle Webb RN [address], [place], [address], [facility] 06/21/2023 13:06:55 11/06/19 02 Arthroscopic Surgery completed Annabelle Webb RN [address], [place], [address], [facility] 06/21/2023 13:06:55 02/21/19 89 Caesarean Section completed Annabelle Webb RN [address], [place], [address], [facility] 06/21/2023 13:06:55 Imaging Results None recorded. Procedure [...] Updated DateTime 06/21/2023 160.02 cm 28.3 kg/m2 04383.78 g 120/70 mm[Hg] Annabelle Webb RN [address], [place], [address], [place] [facility] 06/21/2023 13:11:57 Social History Question Answer Notes LastModified by Organizat ion Details LastModified Time Tobacco Smoking Status Never Smoker Annabelle Webb RN [address], [place], [address], [place] [facility] 06/21/2023 13:06:54 How Much Tobacco Do You Chew? None Information not available 06/21/2023 What Is The Highest Grade Or Level Of School You Have Completed Or The Highest Degree You Have Received? [id number] Information not available 06/21/2023 Cigar Smoking No [...] Ways My Life Is Close To My [place]. 7 - Strongly Agree [email or web address] Information not [...] The Last Month, How Often Have You [place] That You Were Unable To Control The Important Things In Your Life? 1 - Almost Never [email or web address] Information not available 08/10/2022 STRESS -- In The Last Month, How Often Have You [place] Nervous And Stressed? 3 - Fairly Often [email or web address] Information not available 08/10/2022 STRESS -- In The Last Month, How Often Have You [place] Confident About Your Ability To Handle Your Personal Problems? 4 - Very Often [email or web address] Information not available 08/10/2022 STRESS -- In The Last Month, How Often Have You [place] That Things Were Going Your Way? 4 - Very Often [email or web address] Information not available 08/10/2022 STRESS -- In The Last Month, How Often Have You Found That You Could Not Prospect With All The Things That You Had To Do? 2 - Sometimes [email or web address] Information not available 08/10/2022 STRESS -- In The Last Month, How Often Have You Been Able To Control Irritations In Your Life? 4 - Very Often [email or web address] Information not available 08/10/2022 STRESS -- In The Last Month, How Often Have You [place] That You Were On Top Of Things? 2 - Sometimes [email or web address] Information not available 08/10/2022 STRESS -- In The Last Month, How Often Have You Been Angered Because Of Things That Happened That Were Outside Of Your Control? 1 - Almost Never [email or web address] Information not available 08/10/2022 STRESS -- In The Last Month, How Often Have You [place] Difficulties Were Piling Up So High That [...] SNOMED-CT Code Diagnosis ICD10 Code Diagnosis Note [id number] ANDREW [facility] [address], [place] [address] [place] [address] 4 08/11/2022 17:58:47 08/11/2022 18:56:24 [id number] Ivana Christianson MD [facility] [address], [place] [address] [place] [address] 4 06/21/2023 13:04:51 06/21/2023 13:30:14 Acute sinusitis [id number] J01.90 -sinusitis x 2 weeks, continue symptomati [...] ID Guarantor Name 09/12/2023 1 [facility] (PPO) [id number] 2 Jody Vega [id number] Jody Vega 09/12/[address] [facility] - (PPO) [id number] 2 Jody Vega [id number] Jody Vega Notes Date Note Type Note Provider Name and Address Organization Details Recorded Time 06/21/2023 text/html TELEPHONIC CONSULTATION Patient name, , and emergency contact verified. Patient Location -[place] Provider location - [place]. Telephonic questionnaires reviewed. Telemedicine limitations were discussed [...] kidney problems Ivana Christianson MD [address], [place], [address], [place] [facility] 06/21/2023 13:40:06 OBGyn Episode No OBEpisode recorded.
--- OUTSIDE RECORDS SUMMARY | 2024-09-27 07:16 | XMS_ITS | Data Portability ---
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 01/19/2019 12:52:32 Lumbago with sciatica [id number] M54.40 radiation into the right buttocks will start her on gabapentin today to help decrease her sciatica as it has worsened in addition to her right elbow tendinitis , her right 1st flexor tendon and her low back are bothersome , so an IM injection of 120 mg depo medrol will help with all of this today [id number] LOU KILLIAN APRN RHEUMATOL OGY [address] [place] [address] 01/29/2019 08:58:30 01/29/2019 13:45:40 Tendinitis of right elbow [id number] M67.823 needs to wear her elbow strap use TENS unit and ice will provide injection to the bicep tendon attachment site as well as the tricep tendon attachment site; so two injections given today will continue voltaren gel; new Rx sent earlier today see me prn [id number] LOU KILLIAN APRN RHEUMATOL OGVeronique [address] [place] [address] 04/03/2019 08:26:54 04/03/2019 11:24:13 Tendinitis of right elbow [id number] 8865019 M67.823 needs to wear her elbow strap use TENS unit and ice use prn gabapentin and nsaids Pain of ear 979387467 H9 2.09 bright red, swollen, ulcerated will provide with ciprodex Acute otitis externa 302 02531 H60.509 chronic and recurring will have her use ciprodex daily Acute uppe r respiratory infection 52058526 J06.9 with uri s/s for over 2 weeks failed 2 antibiotic s will begin augmentin, along with prom dm, tessalon perles and provide with diflucan for prn candidiasi s infection [id number] LOU KILLIAN APRN RHEUMATOL OGY [address] [place] [address] 09/24/2020 15:20:20 09/24/2020 16:26:17 Lumbago with sciatica 205175744 M54.40 radiation into the right buttocks will start her on gabapentin today to help decrease her sciatica as it has worsened in addition to her right elbow tendinitis , her right 1st flexor tendon and her low back are bothersome , so an IM injection Anti-nucle ar factor detected [id number] R76.8 1:80 homogenous without lupus panel resulted as of yetpatient will call with questions about the lupus panel in 1 week Pain of mu ltiple joints 25199779 M25.50 chronic and recurring multiple joint pain with tenderness and swelling; recent eye examinatio n identifies inflammati on recurring in bilateral eyes, requiring patients to be on steroidal eye drops discussed and will obtain labs today as well as outside ophthalmol ogy report Pain of to e of right foot [id number] 85342 M79.674 injectoin givenrevie wed xraybeginn ing stages of bunion Vitamin D deficiency 347 25232 E55.9 will take calcium with vitamin d Health Concerns Section Related Observation LastModified by Organization Detai ls LastModified Time None Recorded Concern Status LastModified by Organization Details LastModified Time None Recorded Advance Directives Directive None Recorded Payers Insurance Date Sequence Insurance Name Policy Number Policy Estevez Covered Member ID Estevez Member ID Guarantor Name 09/23/2020 1 [place] [id number] Jody Cantu Gary [id number] Jody J Gary 09/24/2019 INGENIOUSMED (MOVED TO HOLD) Jody Mach J Gary 09/24/2019 [employer] Jody Vera J Gary 01/30/2020 1 [facility] [id number] Ronan Ayala [id number] Jody J Gary 02/02/2018 PAYMENT PLAN Jody J Gary 09/24/2020 1 [facility] [id number] Jody J Gary [id number] Jody J Gary 12/28/2016 PAYMENT PLAN Jody J Gary Notes Date Note Type Note Provider Name and Address Organization Details Recorded Time 09/13/2018 text/html Chief Complaint:chronic sinusitis Timing: symptoms for a few years Duration:constant Location:right Sphenoid Severity:noticed severe lately after antibiotics Quality:pressure Context: Modifing Factors:had ct completed 3 weeks of Augmentin. Some improvement. Not as much headache pain. Still has right ear fullness Assoc Signs and Symptoms:Sinuses have much improved, has had right aural fullness, no longer has foul taste in mouth, intermittent headaches but stated it may be stress related . LUIS ANGEL MONIQUE MD [address] [place], [address], [facility] 09/13/2018 17:09:00 01/04/2019 text/html ROS as noted in the HPI f/u on bilateral hip pain; feeling sciatica return; continues with PT, massage therapy, dry needling, acupuncture and director career services prn; reports bilateral hip pain, si joint tenderness; bilateral greater trochanteric bursitis; she has low back pain, tenderness; bilateral knee pain, some feeling like her knees are giving out at times; some radiation of pain down to the knees and then to the ankles; she uses ice, heat, nsaids, tylenol; she continues to ice and stretch with the IT band stretches; she currently denies bowel or bladder changes, cp, soa, rash or fevers and all others are negative LOU KILLIAN APRN [address] [place], [address], [facility] 01/16/2019 13:45:31 01/29/2019 text/html ROS as noted in the HPI acute visit for right elbow pain; chronic and recurring golfer's and tennis elbow; 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; requesting injection; she currently denies bowel or bladder changes, cp, soa, rash or fevers and all others are negative LOU KILLIAN APRN [address] [place], [address], [facility] 01/29/2019 10:20:23 04/03/2019 text/html ROS as noted in the HPI acute visit pain and tenderness before losing her insurance; she reports bilateral ear pain and tenderness; treated for sinus infection arm and hips are improved; chronic and recurring golfer's and tennis elbow; 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; requesting injection; she currently denies bowel or bladder changes, cp, soa, rash or fevers and all others are negative LOU KILLIAN APRN [address] [place], [address], [facility] 04/12/2019 20:57:54 09/24/2020 text/html ROS as noted in the HPI acute visit pain in right great toe; having issues with right foot since 2018; 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
--- OUTSIDE RECORDS SUMMARY | 2024-09-27 07:16 | XMS_ITS | Clinical Summary ---
Author Organization Healthcare Address [address] [place] [address] Care Team Providers Care Barn Boss Name Role Phone Violet Braxton APRN Primary Care Provider Allergies No known active allergies Medications Multiple [...] 90 tablet 3 5 05/25/19 Active rizatriptan SUMMER COUNSELOR (Maxalt-SUMMER COUNSELOR) 10 MG disintegrating tablet Dissolve 1 tablet on the tongue as needed for migraine. 9 tablet 3 5 Active Active Problems No known active problems Encounters Date Type Department Care Team Description 08/02/2024 Refill [facility] Medicine [address] [place] [address] Violet Braxton, CLAYTON from Last 3 [...] any time in the past 12 m [facility], were you homeless or living in a [...] 01/11/2018 UKY-Zoster Vaccines (1 of 2) 01/11/2018 [id number] Vaccine (4 - season) 2023 12/30/2021, 06/07/2020, [...] 5.9(H) <5.7 % 09/02/2023 1:20 PM EDT [facility] Blood Venous blood specimen / Unknown [...] Adults <6.0% Children and Adolescents <7.5% Source: [place] [employer]. Standards of medical care in diabetes,2017. Diabetes Care.2017:40 (suppl 1):S1-S135. HbA1c assay performed by an ion-exchange chromatography method that is certified traceable to the DCCT. Violet Braxton SALES DIRECTOR LAB BLOOD ORDERABLES Final Result Performing Organization Address City/State/[facility] Co de Phone Number [facility] [address] [place] [address] * MAMMOGRAPHY EXTERNAL RESULTS (04/11/2023) Anatomical Region Laterality Modality Mammography Narrative 04/11/2023 Ordered by an unspecified provider. us External Provider IMG BI PROCEDURES Final Result * COLONOSCOPY EXTERNAL RESULT (03/02/2018) Anatomical Region Laterality Modality Endoscopy Narrative 03/02/2018 Ordered by an unspecified provider. us External Provider GI PROCEDURE ORDERABLES Final Result from Last 3 Months or Most Recently Relevant to Health Maintenance Insurance [facility] Care Teams Barn Boss Relationship Specialty Start Date End Date Violet Braxton, CLAYTON [address] [place] [address] PCP - General 07/18/20
--- OUTSIDE RECORDS SUMMARY | 2024-09-27 07:16 | XMS_ITS | Encounter Summary ---
Author Organization Healthcare Address [address] [place] [address] Care Team Providers Care Immersion Metalcleaner Name Role Phone Violet Braxton APRN Primary Care Provider [phone] Reason for Visit * Reason Comments Med Refill Encounter Details Date Type Department Care Team (Late st Contact Info) Description 01/24/2021 Refill [facility] [address] [place] [address] Violet Braxton APRN [address] [place] [address] Social History Tobacco Use Types [...] documented as of this encounter Care Teams Immersion Metalcleaner Relationship Specialty Start Date End Date Violet Braxton APRN [address] [place] [address] PCP - General 07/18/20 documented as of this encounter
--- OUTSIDE RECORDS SUMMARY | 2024-09-27 07:16 | XMS_ITS | Encounter Summary ---
Author Organization Healthcare Address [address] [place] [address] Care Team Providers Care Clinical Information Systems Director Name Role Phone Violet Braxton APRN Primary Care Provider [phone] Reason for Visit * Reason Comments Med Refill Encounter Details Date Type Department Care Team (Late st Contact Info) Description 03/10/2022 Refill [facility] [address] [place] [address] Violet Braxton APRN [address] [place] [address] Generalized anxiety disorder Social History [...] documented as of this encounter Care Teams Clinical Information Systems Director Relationship Specialty Start Date End Date Violet Braxton APRN [address] [place] [address] PCP - General 07/18/20 documented as of this encounter
--- OUTSIDE RECORDS SUMMARY | 2024-09-27 07:16 | XMS_ITS | Encounter Summary ---
Author Organization Healthcare Address [address] [place] [address] Care Team Providers Care Speed Winder Name Role Phone Violet Braxton APRN Primary Care Provider Reason for Visit * Reason Comments Med Refill Encounter Details Date Type Department Care Team (Late st Contact Info) Description 12/19/2020 Refill [facility] [address] [place] [address] Violet Braxton APRN [address] [place] [address] Social History Tobacco Use Types [...] documented as of this encounter Care Teams Speed Winder Relationship Specialty Start Date End Date Violet Braxton APRN [address] [place] [address] PCP - General 07/18/20 documented as of this encounter
== END 2024-09-27 23:59 | disposition home or self-care (01) ==
LOC: RAD 07:14
PROVIDERS: PCP Nurse Practitioner Family; Visit Provider Physician Assistant
DX: S46.912A Strain of unspecified muscle, fascia and tendon at shoulder and upper arm level, left arm, initial encounter (principal)
CPT/HCPCS: 73221

== ENCOUNTER 2024-10-18 07:14 | Outpatient (CLI) | payer OTHER, SELFPAY ==
--- OUTSIDE RECORDS SUMMARY | 2024-10-18 07:18 | XMS_ITS | Encounter Summary ---
Author Organization Healthcare Address [address] [place] [address] Care Team Providers Care Reefer Engineer Name Role Phone Violet Braxton APRN Primary Care Provider [phone] Reason for Visit * Reason Comments Med Refill Encounter Details Date Type Department Care Team (Late st Contact Info) Description 12/19/2020 Refill [facility] [address] [address] Violet Braxton APRN [address] [place] [address] Social History Tobacco Use Types Packs/Day Years Used Date Smoking Tobacco: Never Comments Unknown Sex and Gender Information Value Date Recorded Sex Assigned at Female 01/04/2022 5:23 PM EDT Legal Sex Female 7:57 PM EDT Gender Identity Female 01/04/2022 5:23 PM EDT Sexual Orientation Straight 01/04/2022 5: 23 PM EDT documented as of this encounter Plan of Treatment Upcoming Encounters Date Type Department Care Team (Late st Contact Info) Description 10/25/2024 4:00 PM EDT Office Visit [facility] [address] [address] Violet Braxton APRN [address] [place] [address] documented as of this encounter Visit Diagnoses Not on filedocumented in this encounter Additional Health Concerns Infection Onset Date Last Indicated Resolved Time COVID-19 Rule-Out 10/26/2023 10/26/2023 10/26/2023 7:24 PM EDT COVID 19 (Confirmed) 10/26/2023 10/26/2023 024 5:23 AM EDT documented as of this encounter Care Teams Reefer Engineer Relationship Specialty Start Date End Date Violet Braxton APRN [address] [place] [address] PCP - General 07/18/20 documented as of this encounter
--- OUTSIDE RECORDS SUMMARY | 2024-10-18 07:18 | XMS_ITS | Encounter Summary ---
Author Organization [facility] Address [address] [place] [address] Care Team Providers Care Brim Pouncer Machine Operator Name Role Phone Violet Braxton APRN Primary Care Provider Encounter Details Date Type Department Care Team (Late st Contact Info) Description 10/17/2024 Orders Only [facility] [address] [address] Violet Braxton APRN [address] [place] [address] Screening mammogram for breast cancer (Primary Dx) Social History Tobacco Use Types Packs/Day Years [...] place to sleep or slept in a fpc (including now)? No 09/02/2023 PHQ-9 Answer Date [...] any time in the past 12 m [facility], were you homeless or living in a fpc (including now)? No 05/22/2024 Utilities Answer Date [...] Description 10/25/2024 4:00 PM EDT Office Visit [facility] [address] [place] [address] Violet Braxton APRN [address] [place] [address] Scheduled Orders Name Type Priority Associated Diagnoses Orde r Schedule Mammography Breast Screening Tomosynthesis Bilateral Imaging Routine Screening mammogram for breast cancer Expected: 10/17/2024 (Approximate), Expires: 04/20/2026 documented as of this encounter Visit Diagnoses Diagnosis Screening mammogram for breast cancer- Primary documented in this encounter Additional Health Concerns Assessment Noted Time PHQ-9 Depression Total Score: 2 05/25/19 25 4:26 PM EDT A fall risk assessment has been complete d for the patient 03/04/2021 1:38 PM EST A Body Mass Index follow-up plan has been documented for the patient 05/24/2024 5:07 PM EDT documented as of this encounter Care Teams Brim Pouncer Machine Operator Relationship Specialty Start Date End Date Violet Braxton APRN [address] [place] [address] PCP - General 07/18/20 documented as of this encounter
--- OUTSIDE RECORDS SUMMARY | 2024-10-18 07:18 | XMS_ITS | Encounter Summary ---
Author Organization Healthcare Address [address] [place] [address] Care Team Providers Care Paraoptometric Name Role Phone Violet Braxton APRN Primary Care Provider Reason for Visit * Reason Comments Med Refill Encounter Details Date Type Department Care Team (Late st Contact Info) Description 03/10/2022 Refill [facility] [address] [place] [address] Violet Braxton APRN [address] [place] [address] Generalized anxiety disorder Social History [...] documented in this encounter Plan of Treatment Upcoming Encounters Date Type Department Care Team (Late st Contact Info) Description 10/25/2024 4:00 PM EDT Office Visit [facility] [address] [place] [address] Violet Braxton APRN [address] [place] [address] documented as of this encounter Visit Diagnoses Diagnosis Generalized anxiety disorder documented in this encounter Additional Health Concerns Infection Onset Date Last Indicated Resolved Time COVID-19 Rule-Out 10/26/2023 10/26/2023 10/26/2023 7:24 PM EDT COVID 19 (Confirmed) 10/26/2023 10/26/2023 024 5:23 AM EDT Assessment Noted Time PHQ-9 Depression Total Score: 12 021 1:38 PM EST A fall risk assessment has been complete d for the patient 03/04/2021 1:38 PM EST documented as of this encounter Care Teams Paraoptometric Relationship Specialty Start Date End Date Violet Braxton APRN [address] [place] [address] PCP - General 07/18/20 documented as of this encounter
--- OUTSIDE RECORDS SUMMARY | 2024-10-18 07:18 | XMS_ITS | Encounter Summary ---
Author Organization Healthcare Address [address] [place] [address] Care Team Providers Care Cement Mason Helper Name Role Phone Violet Braxton APRN Primary Care Provider [phone]- [phone] Encounter Details Date Type Department Care Team (Late st Contact Info) Description 10/17/2024 Orders Only [facility] [address] [address] Violet Braxton APRN [address] [place] [address] Annual physical exam (Primary Dx) Social History Tobacco Use Types [...] place to sleep or slept in a group home (including now)? No 09/02/2023 PHQ-9 Answer Date [...] any time in the past 12 m [facility], were you homeless or living in a group home (including now)? No 05/22/2024 Utilities Answer Date Recorded In the past 12 months has th e [employer], gas, oil, or water company threatened to [...] Description 10/25/2024 4:00 PM EDT Office Visit [facility] [address] [place] [address] Violet Braxton APRN [address] [place] [address] Scheduled Orders Name Type Priority Associated Diagnoses Orde r Schedule Comprehensive Metabolic Panel, Plasma Lab Routine Annual physical exam Expected: 10/17/2024 (Approximate), Expires: 04/20/2026 CBC and differential Lab Routine Annual physical exam Expected: 10/17/2024 (Approximate), Expires: 04/20/2026 TSH Lab Routine Annual physical exam Expected: 10/17/2024 (Approximate), Expires: 04/20/2026 Lipid panel Lab Routine Annual physical exam Expected: 10/17/2024 (Approximate), Expires: 04/20/2026 Hemoglobin A1c Lab Routine Annual physical exam Expected: 10/17/2024 (Approximate), Expires: 04/20/2026 documented as of this encounter Visit Diagnoses Diagnosis Annual physical exam- Primary Routine general medical examination at a health care facility documented in this encounter Additional Health Concerns Assessment Noted Time PHQ-9 Depression Total Score: 2 05/25/19 25 4:26 PM EDT A fall risk assessment has been complete d for the patient 03/04/2021 1:38 PM EST A Body Mass Index follow-up plan has been documented for the patient 05/24/2024 5:07 PM EDT documented as of this encounter Care Teams Cement Mason Helper Relationship Specialty Start Date End Date Violet Braxton APRN [address] [place] [address] PCP - General 07/18/20 documented as of this encounter
--- OUTSIDE RECORDS SUMMARY | 2024-10-18 07:19 | XMS_ITS | Encounter Summary ---
Author Organization Healthcare Address [address] [place] [address] Care Team Providers Care Junior Legal Secretary Name Role Phone Violet Braxton APRN Primary Care Provider [phone]- [phone] Reason for Visit * Reason Comments Med Refill Encounter Details Date Type Department Care Team (Late st Contact Info) Description 01/24/2021 Refill [facility] [address] [place] [address] Violet Braxton APRN [address] [place] [address] Social History Tobacco Use Types [...] Description 10/25/2024 4:00 PM EDT Office Visit [facility] [address] [place] [address] Violet Braxton APRN [address] [place] [address] documented as of this encounter Visit Diagnoses Not on filedocumented in this encounter Additional Health Concerns Infection Onset Date Last Indicated Resolved Time COVID-19 Rule-Out 10/26/2023 10/26/2023 10/26/2023 7:24 PM EDT COVID 19 (Confirmed) 10/26/2023 10/26/2023 024 5:23 AM EDT documented as of this encounter Care Teams Junior Legal Secretary Relationship Specialty Start Date End Date Violet Braxton APRN [address] [place] [address] PCP - General 07/18/20 documented as of this encounter
--- OUTSIDE RECORDS SUMMARY | 2024-10-18 07:19 | XMS_ITS | Clinical Summary ---
Author Organization Healthcare Address [address] [place] [address] Care Team Providers Care Insert Operator Name Role Phone Violet Braxton APRN [...] 90 tablet 3 5 05/25/19 Active rizatriptan LUNCHROOM ATTENDANT (Maxalt-LUNCHROOM ATTENDANT) 10 MG disintegrating tablet Dissolve 1 tablet on the tongue as needed for migraine. 9 tablet 3 5 Active Active Problems No known active problems Encounters Date Type Department Care Team Description 10/17/2024 Orders Only [facility] [address] [place] [address] Violet Braxton APRN Annual physical exam (Primary Dx) 10/17/2024 Orders Only [facility] [address] [place] [address] Violet Braxton APRN Screening mammogram for breast cancer (Primary Dx) 08/02/2024 Refill [facility] [address] [place] [address] Violet Braxton APRN from Last 3 Months Social History Tobacco [...] place to sleep or slept in a retirement (including now)? No 09/02/2023 PHQ-9 Answer Date [...] any time in the past 12 m [facility], were you homeless or living in a retirement (including now)? No 05/22/2024 Utilities Answer Date Recorded In the past 12 months has [employer], gas, oil, or water company threatened [...] 05/24/2024 4:22 PM EDT Plan of Treatment Upcoming Encounters Date Type Department Care Team (Late st Contact Info) Description 10/25/2024 4:00 PM EDT Office Visit [facility] [place] [address] Violet Braxton, [place] [address] Health Maintenance Due Date Last Done Comments [facility]-HIV Screening 1968 [facility]-Hepatitis C Screening 1968 [facility]-/Child/Adol SDOH Screenings 1968 [facility]-Hepatitis B Vaccines (1 of 3 - 19+ 3-dose series) 01/11/1987 [facility]Y-Pap Smear 01/11/1989 [facility]Y-Cervical Cancer Screening 01/11/1998 [facility]Y-HPV/Cotest 01/11/1998 CT Colonography 01/11/2013 FIT-DNA 01/11/2013 FIT 01/11/2013 FOBT 01/11/2013 Sigmoidoscopy 01/11/2013 UKY-Pneumococcal Vaccine: 50+ Years (1 of 1 - PCV) 01/11/2018 [facility]Y-Zoster Vaccines (1 of 2) 01/11/2018 [id number] Vaccine ( - season) 2023 12/30/2021, 06/07/2020, 05/10/2020 [facility]Y-Influenza [...] 5.9(H) <5.7 % 09/02/2023 1:20 PM EDT [facility] Blood Venous blood specimen / Unknown Venipuncture / Unknown 09/02/2023 9:24 AM EDT 09/02/2023 9:24 AM EDT Narrative [facility] - 09/02/2023 1:20 PM EDT HA1C Interpretive Data: Diagnosis of Diabetes: Diabetic > or = 6.5% Pre-diabetic 5.7 to 6.4% Non-diabetic < or = 5.6% Glycemic Targets for Type I and Type II Diabetics: Non- Adults <7.0% Adults <6.0% Children and Adolescents <7.5% Source: [place] [employer]. Standards of medical care in diabetes,2017. Diabetes Care.2017:40 (suppl 1):S1-S135. HbA1c assay performed by an ion-exchange chromatography method that is certified traceable to the DCCT. Violet Braxton NECKTIE MAKER LAB BLOOD ORDERABLES Final Result [facility] [address] [place] [id number] * MAMMOGRAPHY EXTERNAL RESULTS (04/11/2023) Anatomical Region Laterality Modality Mammography Narrative 04/11/2023 Ordered by an unspecified provider. us External Provider IMG BI PROCEDURES Final Result * COLONOSCOPY EXTERNAL RESULT (03/02/2018) Anatomical Region Laterality Modality Endoscopy Narrative 03/02/2018 Ordered by an unspecified provider. us External Provider GI PROCEDURE ORDERABLES Final Result from Last 3 Months or Most Recently Relevant to Health Maintenance Insurance [facility] Care Teams Insert Operator Relationship Specialty Start Date End Date Violet Braxton APRN [facility] [address] [facility] [place] [address] PCP - General 07/18/20
--- OUTSIDE RECORDS SUMMARY | 2024-10-18 07:19 | XMS_ITS | Encounter Summary ---
Author Organization Healthcare Address [address] [place] [address] Care Team Providers Care Building Insulation Installer Name Role Phone Violet Braxton APRN Primary Care Provider Reason for Visit * Reason Comments Med Refill Encounter Details Date Type Department Care Team (Late st Contact Info) Description 02/04/2021 Refill [facility] [address] [place] [address] Violet Braxton APRN [address] [place] [address] Social History Tobacco Use Types [...] Description 10/25/2024 4:00 PM EDT Office Visit [facility] [address] [place] [address] Violet Braxton, PROGRAM DIRECTOR/AIR PERSONALITY [address] [place] [address] documented as of this encounter Visit Diagnoses Not on filedocumented in this encounter Additional Health Concerns Infection Onset Date Last Indicated Resolved Time COVID-19 Rule-Out 10/26/2023 10/26/2023 10/26/2023 7:24 PM EDT COVID 19 (Confirmed) 10/26/2023 10/26/2023 024 5:23 AM EDT documented as of this encounter Care Teams Building Insulation Installer Relationship Specialty Start Date End Date Violet Braxton, PROGRAM DIRECTOR/AIR PERSONALITY [address] [place] [address] PCP - General 07/18/20 documented as of this encounter
[2024-10-18 08:06] LABS: Hematocrit 42.4 % (37.0-47.0); Hemoglobin 14.0 g/dL (12.2-16.2); Immature Granulocytes % 0.6 %; Mean Corpuscular HGB Conc 33.0 g/dL (31.8-35.4); Mean Corpuscular Hemoglobin 30.2 pg (27.0-31.2); Mean Corpuscular Volume 91.6 fl (81-99); Nucleated Red Blood Cells % 0 %; Platelet Count 266 K/mm3 (142-424); Red Blood Count 4.63 M/mm3 (4.20-5.40); Red Cell Distribution Width-SD 44.9 fL; White Blood Count 6.9 K/mm3 (4.8-10.8)
[2024-10-18 08:34] LABS: Albumin Level 4.7 g/dl (3.5-5.0); Chloride 105 mmol/L (98-107); Sodium 140 mmol/L (136-145)
[2024-10-18 08:35] LABS: Potassium 4.2 mmoL/L (3.5-5.1)
[2024-10-18 08:37] LABS: Alanine Aminotransferase 29 U/L (12-78); Anion Gap 13.2 mEq/L (5-15); Aspartate Amino Transferase 26 U/L (14-36); Blood Urea Nitrogen 20 mg/dl (7-17); Carbon Dioxide 26 mmol/L (22.0-30.0); Creatinine,Serum 0.70 mg/dl (0.52-1.04); Estimated Glomerular Filt Rate 87 ml/min (>60); GFR (African American) 105 ML/MIN (>60)
[2024-10-18 08:38] LABS: Albumin/Globulin Ratio 1.7 (1.1-1.8); Alkaline Phosphatase 77 U/L (38-126); Bilirubin,Total 0.5 mg/dl (0.2-1.3); Calcium 9.5 mg/dl (8.4-10.2); Cholesterol 300 mg/dl (140-200); Globulin 2.8 g/dL (1.3-3.2); Glucose 104 mg/dl (74-100); HDL Cholesterol 58 mg/dl (40-60); Total Protein,Serum 7.5 g/dl (6.3-8.2); Triglycerides 171 mg/dl (30-150)
[2024-10-18 09:07] LABS: Thyroid Stimulating Hormone 2.27 uIU/mL (0.465-4.68)
[2024-10-18 09:46] LABS: Hemoglobin A1C 5.9 % (4.0-6.0)
== END 2024-10-18 23:59 | disposition home or self-care (01) ==
LOC: LAB 07:17
PROVIDERS: PCP Nurse Practitioner Family; Visit Provider Nurse Practitioner Family
DX: Z00.00 Encounter for general adult medical examination without abnormal findings (principal)
CPT/HCPCS: 36415; 80053; 80061; 83036; 84443; 85025

== ENCOUNTER 2024-10-30 14:52 | Outpatient (CLI) | payer OTHER, SELFPAY ==
--- OUTSIDE RECORDS SUMMARY | 2024-10-30 07:40 | XMS_ITS | Encounter Summary ---
Author Organization [facility] Address [address] [place] [address] Care Team Providers Care Centrifugal Separator Name Role Phone Violet Braxton APRN Primary Care Provider [phone]- [phone] Reason for Visit * Reason Comments Annual Exam Encounter Details Date Type Department Care Team (Late st Contact Info) Description 10/30/2024 7:40 AM EDT Office Visit [facility] [address] [place] [address] Violet Braxton APRN [address] [place] [address] Annual physical exam (Primary Dx); [...] Recorded Patient Health Questionnaire-2 Score 2 10/30/2024 Housing Stability Vital Sign Answer Teo [...] place to sleep or slept in a snf (including now)? No 09/02/2023 PHQ-9 Answer Date Recorded Patient Health Questionnaire-9 Score 4 10/30/2024 Housing Stability Vital Sign Answer Teo e Recorded In the last 12 months, was t here a time when you were not able to pay the mortgage or rent on time? No 05/22/2024 In the past 12 months, how m any times have you moved where you were living? 0 05/22/2024 At any time in the past 12 m onths, were you homeless or living in a snf (including now)? No 05/22/2024 Humiliation, Afraid, Rape, and Kick questionnair e [...] any time in the past 12 m [facility], were you homeless or living in [...] doing things Several days 10/30/2024 8:01 AM EDT Susy Daniel Feeling down, depressed, or hopeless Several days 10/30/2024 8:01 AM EDT Susy Daniel Patient Health Questionnaire -2 Score 2 10/30/2024 8:01 AM EDT Susy Daniel * Question Answer Date of Assessment Author Trouble falling or staying asleep, or sleeping too much Not at all 10/30/2024 8:01 AM EDT Susy Daniel Feeling tired or having little energy More [...] other people? Somewhat difficult 10/30/2024 8:01 AM Cheikh Sanz * How difficult have these problems made [...] 6. Suicidal Behavior (Lifetime) No 7:55 AM EDT Susy Daniel documented as of this encounter Miscellaneous Notes * Progress Notes - Violet Braxton, SECOND TIME WORKER - 10/30/2024 7:40 AM EDT Subjective Jody [...] file Social Connections: Unknown (12/13/2022) Received from [facility] Family and Community Support Help with Day-to-Day [...] [facility]-Zoster Vaccines (1 of 2) Never done [id number] Vaccine ( - season) 2023 [facility]-Influenza Vaccine (1) 11/05/2024 All [...] daily before breakfast. 90 tablet 3 rizatriptan TICKET SPECULATOR (Maxalt-TICKET SPECULATOR) 10 MG disintegrating tablet Dissolve 1 tablet [...] documented as of this encounter Care Teams Centrifugal Separator Relationship Specialty Start Date End Date Violet Braxton APRN [address] [place] [address] PCP - General 07/18/20 documented as of this encounter
--- OUTSIDE RECORDS SUMMARY | 2024-10-30 14:54 | XMS_ITS | Encounter Summary ---
Author Organization Healthcare Address [address] [place] [address] Care Team Providers Care Document Reviewer Name Role Phone Violet Braxton APRN Primary Care Provider [phone]- [phone] Encounter Details Date Type Department Care Team (Late st Contact Info) Description 10/17/2024 Orders Only [facility] [address] [place] [address] Violet Braxton APRN [address] [place] [address] Annual physical exam (Primary Dx) [...] place to sleep or slept in a fdc (including now)? No 09/02/2023 PHQ-9 Answer Date [...] any time in the past 12 m [facility], were you homeless or living in a fdc (including now)? No 05/22/2024 Utilities Answer Date Recorded In the past 12 months has th e [employer], gas, oil, or water company threatened to [...] as of this encounter Plan of Treatment Scheduled Orders Name Type Priority Associated Diagnoses [...] documented as of this encounter Care Teams Document Reviewer Relationship Specialty Start Date End Date Violet Braxton APRN [address] [place] [id number] PCP - General 07/18/20 documented as of this encounter
--- OUTSIDE RECORDS SUMMARY | 2024-10-30 14:54 | XMS_ITS | Encounter Summary ---
Author Organization [facility] Address [address] [place] [address] Care Team Providers Care Pitting Machine Operator Name Role Phone Violet Braxton APRN Primary Care Provider Encounter Details Date Type Department Care Team (Late st Contact Info) Description 10/17/2024 Orders Only [facility] [address] [place] [address] Violet Braxton APRN [address] [place] [address] Screening mammogram for breast cancer [...] place to sleep or slept in a residential (including now)? No 09/02/2023 PHQ-9 Answer Date [...] any time in the past 12 m [facility], were you homeless or living in a residential (including now)? No 05/22/2024 Utilities Answer Date [...] documented as of this encounter Care Teams Pitting Machine Operator Relationship Specialty Start Date End Date Violet Braxton [place] [address] PCP - General 07/18/20 documented as of this encounter
--- OUTSIDE RECORDS SUMMARY | 2024-10-30 14:54 | XMS_ITS | Clinical Summary ---
Author Organization Healthcare Address [address] [place] [address] Care Team Providers Care Assembly Machine Tender Name Role Phone Violet Braxton APRN Primary Care Provider Allergies No known active allergies Medications Multiple Vitamins-Minerals (MULTI FOR HER 50+ PO) 10/05/19 20 Active Black Pepper-Turmeric (Turmeric Curcumin) 5-1000 MG capsule 10/05/19 20 Active diclofenac (Voltaren) 1 % topical gel Voltaren 1 % topical gel APPLY 2 GRAMS TO THE AFFECTED AREA(S) BY TOPICAL ROUTE 4 TIMES PER DAY Active triamcinolone (Nasacort Allergy 24HR) 55 MCG/ACT nasal inhaler 1 (one) time each day. Active ondansetron (Zofran) 8 MG tablet TAKE ONE TABLET BY MOUTH EVERY 8 HOURS NEEDED FOR NAUSEA AND VOMITING 30 tablet 1 04/17/19 25 Active topiramate (Topamax) 50 MG tabletIndications: Chronic migraine without aura without status migrainosus, not intractable Take 1 tablet (50 mg) by mouth in the morning and 1 tablet (50 mg) before bedtime. 180 tablet 3 05/25/19 25 026 Active traZODone (Desyrel) 50 MG tablet Take 1 tablet (50 mg) by mouth daily. 90 tablet 3 05/25/19 25 026 Active busPIRone (Buspar) 10 MG tablet Take 1 tablet (10 mg) by mouth in the morning and 1 tablet (10 mg) in the evening and 1 tablet (10 mg) before bedtime. 270 tablet 3 05/25/19 25 026 Active Additional Information Patient not taking.Reported on 10/30/2024 venlafaxine XR (Effexor-XR) 150 MG 24 hr capsuleIndications :Generalized anxiety disorder Take 1 capsule (150 mg) by mouth daily. Take with food. 90 capsule 3 05/25/19 25 026 Active pantoprazole (Protonix) 40 MG EC tablet Take 1 tablet (40 mg) by mouth daily before breakfast. 90 tablet 3 05/25/19 25 026 Active montelukast (Singulair) 10 MG tabletIndications: Upper respiratory tract infection, unspecified type,Allergic rhinitis, unspecified seasonality, unspecified trigger Take 1 tablet (10 mg) by mouth nightly. 90 tablet 3 05/25/19 25 026 Active escitalopram (Lexapro) 10 MG tabletIndications: Major depressive disorder, recurrent, moderate (CMS/HCC) Take 1 tablet (10 mg) by mouth daily. 90 tablet 3 05/25/19 25 Active Additional Information Patient not taking.Reported on 10/30/2024 rizatriptan PROPERTY CLERK (Maxalt-PROPERTY CLERK) 10 MG disintegrating tablet Dissolve 1 tablet on the tongue as needed for migraine. 9 tablet 3 08/07/19 25 Active atomoxetine (Strattera) 40 MG capsule Take 1 capsule by mouth daily. 10/16/19 25 Active fluconazole (Diflucan) 150 MG tabletIndications: Vaginal yeast infection Take 1 tablet by mouth daily. Take one tab now. Repeat in 7 days if symptoms persist. 2 tablet 10/31/19 25 Active Active Problems No known active problems Encounters Date Type Department Care Team Description 10/30/2024 7:40 AM EDT Office Visit [address] [address] Violet Braxton, OTOLARYNGOLOGY REP Annual physical exam (Primary Dx); Chronic migraine without aura without status migrainosus, not intractable; Major depressive disorder, recurrent, moderate (CMS/HCC); Vaginal yeast infection 10/30/2024 Telephone [facility] [address] [facility] [place] [address] Violet Braxton APRN 10/30/2024 Travel 10/17/2024 Orders Only [facility] [address] [place], [place] [address] Violet Braxton, OTOLARYNGOLOGY REP Annual physical exam (Primary Dx) 10/17/2024 Orders Only [facility] [address] [place] [address] Violet Braxton, OTOLARYNGOLOGY REP Screening mammogram for breast cancer (Primary Dx) 08/02/2024 Refill [facility] [address] [place] [address] Violet Braxton, OTOLARYNGOLOGY REP from Last 3 Months Immunizations Immunization Administration Dates Next Due Hep A, Adult 11/29/2017 Influenza, Unspecified 05/16/2023,11/29/2017 Influenza, injectable, quadrivalent 11/17/2016 Influenza, injectable, quadrivalent, preservativ e free 02/27/2024 Tdap 11/28/2021,08/18/2016 Social History Tobacco Use Types Packs/Day Years [...] place to sleep or slept in a half-way (including now)? No 09/02/2023 PHQ-9 Answer Date [...] any time in the past 12 m [facility], were you homeless or living in a half-way (including now)? No 05/22/2024 Humiliation, Afraid, Rape, [...] money to buy more. Never true 10/31/19 Within the past 12 months, t he [...] any time in the past 12 m [facility], were you homeless or living in a half-way (including now)? No 10/30/2024 Utilities Answer Date Recorded In the past 12 months has th e [employer], or water company threatened to shut off [...] Mass Index 29.17 10/30/2024 7:53 AM EDT Plan of Treatment Health Maintenance Due [...] 01/11/2018 [facility]-Zoster Vaccines (1 of 2) 01/11/2018 [id number] Vaccine ( - season) 2023 12/30/2021, 06/07/2020, 05/10/2020 [facility]-Influenza Vaccine (#1) 11/05/202402/26, 05/16/2023, 11/29/2017, Additional history exists [facility]-Breast Cancer Screening 04/11/2025 04/11/2023, 1 04/12/2017 [facility]- SDOH Screenings 05/02/2025 [facility]-Adult SDOH Screenings 05/02/2025 10/30/2024 [facility]-Depression Screening 10/30/2025 10/30/2024, 10/06 Colonoscopy 03/02/2028 03/02/2018 [facility]-Colorectal Cancer Screening 03/02/2028 [facility]-DTaP,Tdap,and Td Vaccines (3 - Td or Tdap) 11/29/2031 11/28/2021, 08/18/2016 [facility]-Hepatitis A Vaccines Aged Out 11/29/2017 No longer eligible based on patient's age to complete this topic [facility]-Diabetes: Hemoglobin A1C Discontinued 09/02/2023, 08/19/2022 [facility]-Obesity Intervention Completed 025, 05/24/2024, 10/26/2023, Additional history exists HPV Vaccines Aged Out [...] 5.9(H) <5.7 % 09/02/2023 1:20 PM EDT [facility] Blood Venous blood specimen / Unknown [...] Adults <6.0% Children and Adolescents <7.5% Source: [place] [employer]. Standards of medical care in diabetes,2017. Diabetes Care.2017:40 (suppl 1):S1-S135. HbA1c assay performed by an ion-exchange chromatography method that is certified traceable to the DCCT. Violet Braxton OTOLARYNGOLOGY REP LAB BLOOD ORDERABLES Final Result Performing Organization Address City/State/[facility] Co de Phone Number [facility] [address] [place] [id number] * MAMMOGRAPHY EXTERNAL RESULTS (04/11/2023) Anatomical Region Laterality Modality Mammography Narrative 04/11/2023 Ordered by an unspecified provider. External Provider IMG BI PROCEDURES Final Result * COLONOSCOPY EXTERNAL RESULT (03/02/2018) Anatomical Region Laterality Modality Endoscopy Narrative 03/02/2018 Ordered by an unspecified provider. us External Provider GI PROCEDURE ORDERABLES Final Result from Last 3 Months or Most Recently Relevant to Health Maintenance Insurance [facility] Care Teams Assembly Machine Tender Relationship Specialty Start Date End Date Violet Braxton APRN [address] [place] [address] PCP - General 07/18/20
--- OUTSIDE RECORDS SUMMARY | 2024-10-30 14:54 | XMS_ITS | Encounter Summary ---
Author Organization Healthcare Address [address] [place] [address] Care Team Providers Care Hcc Coders Name Role Phone Violet Braxton APRN Primary Care Provider [phone]- [phone] Reason for Visit * Reason Comments Med Refill Encounter Details Date Type Department Care Team (Late st Contact Info) Description 12/19/2020 [facility] [address] [place] [address] Violet Braxton APRN [address] [place] [address] Social History Tobacco Use Types [...] documented as of this encounter Care Teams Hcc Coders Relationship Specialty Start Date End Date Violet Braxton APRN [address] [place] [address] PCP - General 07/18/20 documented as of this encounter
--- OUTSIDE RECORDS SUMMARY | 2024-10-30 14:54 | XMS_ITS | Encounter Summary ---
Author Organization Healthcare Address [address] [place] [address] Care Team Providers Care Zoogler Name Role Phone Violet Braxton APRN Primary Care Provider +1 [phone] Encounter Details Date Type Department Care Team (Latest Contact Info) Description 10/30/2024 Travel Social History Tobacco Use Types Packs/Day Years [...] in a mcfp (including now)? No 05/22/2024 Humiliation, Afraid, Rape, [...] living in a mcfp (including now)? No 10/30/2024 Utilities Answer Date Recorded In the past 12 months has th e [employer], gas, oil, or water company threatened to [...] PM EDT documented as of this encounter Functional Status * Over the [...] other people? Somewhat difficult 10/30/2024 8:01 AM EDT Cheikh Daniel * How difficult have these problems made it for you to do your work, take care of things at home, or get along with other people? Answer Date of Assessment Author Somewhat difficult 10/30/2024 8:01 AM EDT Susy King * Question Answer Date of Assessment Author 1. Wish to be (Past 1 Month) No 025 7:55 AM JORDANT Susy Daniel 2. Non-Specific Active Suici jessica Thoughts (Past 1 Month) No 10/30/2024 7:55 AM JORDANT Susy Daneil 6. Suicidal Behavior (Lifetime) No 7:55 AM JORDANT Susy Daniel documented as of this encounter Plan of Treatment Not on file documented as of this encounter Visit Diagnoses Not on filedocumented in this encounter Additional Health Concerns Assessment Noted Time PHQ-9 Depression Total Score: 4 10/31/19 8:01 AM EDT A fall risk assessment has been complete d for the patient 10/30/2024 7:55 AM EDT A Body Mass Index follow-up plan has been documented for the patient 10/30/2024 8:42 AM EDT documented as of this encounter Care Teams Zoogler Relationship Specialty Start Date End Date Violet Braxton APRN [address] [place] [phone] PCP - General 07/18/20 documented as of this encounter
--- OUTSIDE RECORDS SUMMARY | 2024-10-30 14:54 | XMS_ITS | Encounter Summary ---
Author Organization Healthcare Address [address] [place] [address] Care Team Providers Care Mushroom Grower Name Role Phone Violet Braxton APRN Primary Care Provider +1- [phone] Encounter Details Date Type Department Care Team (Late st Contact Info) Description 10/30/2024 Telephone [facility] [address] [place] [address] Violet Braxton APRN [address] [place] [address] Social History Tobacco Use Types [...] any time in the past 12 m [facility], were you homeless or living in [...] any time in the past 12 m [facility], were you homeless or living in a snf (including now)? No 10/30/2024 Utilities Answer Date Recorded In the past 12 months has [facility] [employer], gas, oil, or water [employer] threatened to shut off services in your [...] difficult 10/30/2024 8:01 AM EDT Cheikh Daniel M * How difficult have these problems made [...] encounter Miscellaneous Notes * Telephone Encounter - Katie Bazan P - 10/30/2024 12:46 PM EDT Clinical Concern/Question Reason for Call: Pt calling to ask PCP to sent Lipitor to pharmacy so she can pick it up. Stated the other medication has been sent but she is waiting on the lipitor. Pls advise. Thank you! Best contact number: [phone] (mobile) Optimal time of day to reach caller: ANYTIME Additional comments/information from caller: None Note: Please do not reply to this message. Follow-up communication and further actions as a result of this message need to be communicated with the patient directly, if the patient is not active onMyChart. If the patient is active on MyChart, they will receive notification of the communication/outcome via MyChart. documented in this encounter Plan of Treatment [...] documented as of this encounter Care Teams Mushroom Grower Relationship Specialty Start Date End Date Violet Braxton APRN [address] [place] [address] PCP - General 07/18/20 documented as of this encounter
--- OUTSIDE RECORDS SUMMARY | 2024-10-30 14:54 | XMS_ITS | Encounter Summary ---
Author Organization Healthcare Address [address] [place] [address] Care Team Providers Care Cafeteria Or Lunchroom Checker Name Role Phone Violet Braxton APRN Primary Care Provider +1- [phone] Reason for Visit * Reason Comments Med Refill Encounter Details Date Type Department Care Team (Late st Contact Info) Description 01/24/2021 [facility] [address] [place] [address] Violet Braxton APRN [address] [place] [address] Social History Tobacco Use Types [...] documented as of this encounter Care Teams Cafeteria Or Lunchroom Checker Relationship Specialty Start Date End Date Violet Braxton APRN [address] [place] [address] PCP - General 07/18/20 documented as of this encounter
--- OUTSIDE RECORDS SUMMARY | 2024-10-30 14:54 | XMS_ITS | Encounter Summary ---
Author Organization Healthcare Address [address] [place] [address] Care Team Providers Care Social Media Specialist Name Role Phone Violet Braxton APRN Primary Care Provider Reason for Visit * Reason Comments Med Refill Encounter Details Date Type Department Care Team (Late st Contact Info) Description 02/04/2021 [facility] [address] [place] [address] Violet Braxton APRN [address] [place] [address] Social History Tobacco Use Types [...] documented as of this encounter Care Teams Social Media Specialist Relationship Specialty Start Date End Date Violet Braxton, [place] [address] [place] [address] PCP - General 07/18/20 documented as of this encounter
--- OUTSIDE RECORDS SUMMARY | 2024-10-30 14:54 | XMS_ITS | Encounter Summary ---
Author Organization Healthcare Address [address] [place] [address] Care Team Providers Care Dcs Engineer Name Role Phone Violet Braxton APRN Primary Care Provider Reason for Visit * Reason Comments Med Refill Encounter Details Date Type Department Care Team (Late st Contact Info) Description 03/10/2022 [facility] [address] [place] [address] Violet Braxton APRN [address] [place] [address] Generalized anxiety disorder Social History [...] documented as of this encounter Care Teams Dcs Engineer Relationship Specialty Start Date End Date Violet Braxton APRN [address] [place] [address] PCP - General 07/18/20 documented as of this encounter
== END 2024-10-30 23:59 | disposition home or self-care (01) ==
LOC: RAD 14:52
PROVIDERS: PCP Nurse Practitioner Family; Visit Provider Nurse Practitioner Family
DX: R69 Illness, unspecified (principal)

== ENCOUNTER 2024-11-13 15:39 | Outpatient (CLI) | payer OTHER, SELFPAY ==
--- OUTSIDE RECORDS SUMMARY | 2024-10-30 07:40 | XMS_ITS | Encounter Summary ---
Author Organization Healthcare Address [address] [place] [address] Care Team Providers Care Onyx Chip Terrazzo Worker Name Role Phone Violet Braxton APRN Primary Care Provider +1- [phone] Reason for Visit * Reason Comments Annual Exam Encounter Details Date Type Department Care Team (Late st Contact Info) Description 10/30/2024 7:40 AM EDT Office Visit [facility] [address] [place] [address] Violet Braxton APRN [address] [place] [address] Annual physical exam (Primary Dx); [...] any time in the past 12 m [facility], were you homeless or living in a snf (including now)? No 10/30/2024 Utilities Answer Date Recorded In the past 12 months has e [employer], [employer], oil, or water [employer] threatened to shut off services in your [...] or hopeless Several days 10/30/2024 8:01 AM Susy Sanz Patient Health Questionnaire -2 Score 2 [...] Author No Risk Indicated 10/30/2024 7:55 AM Susy Hooper * If you checked off any problems on this questionnaire so far, Question Answer Date of Assessment Author How difficult have these problems made it for you to do your work, take care of things at home, or get along with other people? Somewhat difficult 10/30/2024 8:01 AM JORDANT Cheikh Daniel * How difficult have these problems made it for you to do your work, take care of things at home, or get along with other people? Answer Date of Assessment Author Somewhat difficult 10/30/2024 8:01 AM Susy Crawford * Question Answer Date of Assessment Author [...] so that isbetter She is UTD on joise, colon and had hyst so no pap [...] file Social Connections: Unknown (12/13/2022) Received from [facility] Family and Community Support Help with [...] UKY-Zoster Vaccines (1 of 2) Never done [id number] Vaccine (4 - 2023- season) 2023 UKY-Influenza Vaccine (1) [...] daily before breakfast. 90 tablet 3 rizatriptan STRUCTURAL STEEL TRADES WORKER (Maxalt-STRUCTURAL STEEL TRADES WORKER) 10 MG disintegrating tablet Dissolve 1 tablet [...] documented as of this encounter Care Teams Onyx Chip Terrazzo Worker Relationship Specialty Start Date End Date Violet Braxton APRN [address] [place] [phone] PCP - General 07/18/20 documented as of this encounter
--- NOTE | 2024-11-13 | MM_ITS ---
PROCEDURE INFORMATION: Exam: MG Bilateral Screening 3D Mammography Exam date and time: 11/13/2024 3:53 PM Age: 54 years old Clinical indication: Screening examination TECHNIQUE: Imaging protocol: Bilateral Screening tomosynthesis and 2D mammography including computer-aided detection (CAD) when performed. COMPARISON: MG MM DIG SC MAMM IMPLANT BI CAD 04/11/2023 5:03 PM FINDINGS: MAMMOGRAPHY: Breast composition: There are scattered areas of fibroglandular density. Mass: No new or suspicious masses Architectural distortion: None. Calcifications: No suspicious calcifications. Asymmetric density: None. Skin thickening: None. Axillary adenopathy: None. Implants: Subpectoral saline breast implants are present. IMPRESSION: No mammographic evidence of malignancy. Annual screening is recommended unless otherwise clinically indicated. ASSESSMENT: BI-RADS Category 1: Negative.
--- OUTSIDE RECORDS SUMMARY | 2024-11-13 15:41 | XMS_ITS | Encounter Summary ---
Author Organization [facility] Address [address] [place] [address] Care Team Providers Care Milk House Worker Name Role Phone Violet Braxton APRN Primary Care Provider Encounter Details Date Type Department Care Team (Late st Contact Info) Description 10/17/2024 Orders Only [facility] [address] [place] [address] Violet Braxton APRN [address] [place] [address] Screening mammogram for breast cancer [...] place to sleep or slept in a long term (including now)? No 09/02/2023 PHQ-9 Answer Date [...] any time in the past 12 m [facility], were you homeless or living in a long term (including now)? No 05/22/2024 Utilities Answer Date [...] documented as of this encounter Care Teams Milk House Worker Relationship Specialty Start Date End Date Violet Braxton [place] [address] PCP - General 07/18/20 documented as of this encounter
--- OUTSIDE RECORDS SUMMARY | 2024-11-13 15:41 | XMS_ITS | Encounter Summary ---
Author Organization Healthcare Address [address] [place] [address] Care Team Providers Care Internal Corrosion Specialist Name Role Phone Violet Braxton APRN Primary Care Provider [phone]- [phone] Reason for Visit * Reason Comments Med Refill Encounter Details Date Type Department Care Team (Late st Contact Info) Description 12/19/2020 [facility] [address] [place] [address] Violet Braxton APRN [address] [place] [address] Social History Tobacco Use Types [...] documented as of this encounter Care Teams Internal Corrosion Specialist Relationship Specialty Start Date End Date Violet Braxton APRN [address] [place] [address] PCP - General 07/18/20 documented as of this encounter
--- OUTSIDE RECORDS SUMMARY | 2024-11-13 15:41 | XMS_ITS | Encounter Summary ---
Author Organization Healthcare Address [address] [place] [address] Care Team Providers Care Director Product Name Role Phone Violet Braxton APRN Primary Care Provider [phone] Reason for Visit * Reason Comments Med Refill Encounter Details Date Type Department Care Team (Late st Contact Info) Description 03/10/2022 [facility] [address] [place] [address] Violet Braxton APRN [address] [place] [address] Generalized anxiety disorder Social History [...] documented as of this encounter Care Teams Director Product Relationship Specialty Start Date End Date Violet Braxton APRN [address] [place] [address] PCP - General 07/18/20 documented as of this encounter
--- OUTSIDE RECORDS SUMMARY | 2024-11-13 15:41 | XMS_ITS | Encounter Summary ---
Author Organization Healthcare Address [address] [place] [address] Care Team Providers Care Regional Business Manager Name Role Phone Violet Braxton APRN Primary Care Provider +1- [phone] Encounter Details Date Type Department Care Team (Late st Contact Info) Description 10/30/2024 Orders Only [facility] [address] [place] [address] Violet Braxton APRN [address] [place] [address] Breast screening (Primary Dx) Social History Tobacco Use Types [...] any time in the past 12 m [facility], were you homeless or living in a chcf (including now)? No 10/30/2024 Utilities Answer Date [...] (Past 1 Month) No 025 7:55 AM EDT Susy Daniel 2. Non-Specific Active Suici jessica Thoughts (Past 1 Month) No 10/30/2024 7:55 AM EDT Susy Daniel 6. Suicidal Behavior (Lifetime) No 7:55 AM EDT Susy Daniel documented as of this encounter Plan of Treatment Scheduled Orders Name Type Priority Associated Diagnoses Orde r Schedule Mammography Breast Screening Tomosynthesis Bilateral Imaging Routine Breast screening Expected: 10/30/2024 (Approximate), Expires: 05/02/2026 documented as of this encounter Visit Diagnoses Diagnosis Breast screening- Primary Breast screening, unspecified documented in this encounter Additional Health Concerns Assessment Noted Time PHQ-9 Depression Total Score: 4 10/31/19 25 8:01 AM EDT A fall risk assessment has been complete d for the patient 10/30/2024 7:55 AM EDT A Body Mass Index follow-up plan has been documented for the patient 10/30/2024 8:42 AM EDT documented as of this encounter Care Teams Regional Business Manager Relationship Specialty Start Date End Date Violet Braxton APRN [address] [place] [address] PCP - General 07/18/20 documented as of this encounter
--- OUTSIDE RECORDS SUMMARY | 2024-11-13 15:41 | XMS_ITS | Encounter Summary ---
Author Organization Healthcare Address [address] [place] [address] Care Team Providers Care Cap And Hat Production Supervisor Name Role Phone Violet Braxton APRN Primary Care Provider +1- [phone] Encounter Details Date Type Department Care Team (Late st Contact Info) Description 11/07/2024 Orders Only [facility] [address] [place] [address] Violet Braxton APRN [address] [place] [address] Social History Tobacco Use Types [...] any time in the past 12 m [facility], were you homeless or living in [...] documented as of this encounter Care Teams Cap And Hat Production Supervisor Relationship Specialty Start Date End Date Violet Braxton APRN [address] [place] [address] PCP - General 07/18/20 documented as of this encounter
--- OUTSIDE RECORDS SUMMARY | 2024-11-13 15:41 | XMS_ITS | Encounter Summary ---
Author Organization Healthcare Address [address] [place] [address] Care Team Providers Care Scrap Preparation Supervisor Name Role Phone Violet Braxton APRN Primary Care Provider +1- [phone] Encounter Details Date Type Department Care Team (Late st Contact Info) Description 10/17/2024 Orders Only [facility] [address] [place] [address] Violet Braxton APRN [address] [place] [address] Annual physical exam (Primary Dx) [...] the past 12 months has th e [employer], gas, oil, or water company threatened to [...] documented as of this encounter Care Teams Scrap Preparation Supervisor Relationship Specialty Start Date End Date Violet Braxton APRN [address] [place] [address] PCP - General 07/18/20 documented as of this encounter
--- OUTSIDE RECORDS SUMMARY | 2024-11-13 15:41 | XMS_ITS | Encounter Summary ---
Author Organization Healthcare Address [address] [place] [address] Care Team Providers Care Manager Product Name Role Phone Violet Braxton APRN Primary Care Provider +1- [phone] Encounter Details Date Type Department Care Team (Late st Contact Info) Description 10/30/2024 Telephone [facility] [address] [place] [address] Violet Braxton APRN [address] [place] [address] Social History Tobacco Use Types [...] any time in the past 12 m [facility], were you homeless or living in a detention (including now)? No 10/30/2024 Utilities Answer Date [...] other people? Somewhat difficult 10/30/2024 8:01 AM Susy Sanz * How difficult have these problems [...] Notes * Telephone Encounter - Katie Bazan - 10/30/2024 12:46 PM EDT Clinical Concern/Question Reason for Call: Pt calling to ask PCP to sent Lipitor to pharmacy so she can pick it up. Stated the other medication has been sent but she is waiting on the lipitor. Pls advise. Thank you! Best contact number: [phone] (mobile) Optimal time of day to reach caller: ANYTIME Additional comments/information from caller: None Note: Please do not reply to this message. Follow-up communication and further actions as a result of this message need to be communicated with the patient directly, if the patient is not active onMyChart. If the patient is active on MyChart, they will receive notification of the communication/outcome via [employer]. documented in this encounter Plan of Treatment [...] documented as of this encounter Care Teams Manager Product Relationship Specialty Start Date End Date Violet Braxton APRN [address] [place] [address] PCP - General 07/18/20 documented as of this encounter
--- OUTSIDE RECORDS SUMMARY | 2024-11-13 15:41 | XMS_ITS | Encounter Summary ---
Author Organization Healthcare Address [address] [place] [address] Care Team Providers Care Legal Consultant Name Role Phone Violet Braxton APRN Primary Care Provider +1 [phone] Encounter Details Date Type Department Care Team (Late st Contact Info) Description 10/31/2024 Orders Only [facility] [address] [place] [address] Violet Braxton APRN [address] [place] [address] Social History Tobacco Use Types [...] any time in the past 12 m [facility], were you homeless or living in [...] Notes * Progress Notes - Violet Braxton, HUMAN RESOURCES PROJECT MANAGER - 10/31/2024 7:32 AM EDT Subjective Jody Robin Vega HPI Past Medical History[1] Surgical History[2] Family History[3] [...] file Social Connections: Unknown (12/13/2022) Received from [facility] Family and Community Support Help with [...] Year: No Medications Ordered Prior to Encounter[4] Health Maintenance Due Topic Date Due UKY-HIV Screening Never done UKY-Hepatitis C Screening Never done UKY-Hepatitis B Vaccines (1 of 3 - 19+ 3-dose series) Never done UKY-Cervical Cancer Screening Never done UKY-Pneumococcal Vaccine: 50+ Years (1 of 1 - PCV) Never done UKY-Zoster Vaccines (1 of 2) Never done [id number] Vaccine ( - 2023- season) 2023 UKY-Influenza Vaccine (1) 11/05/2024 Review of Systems Objective There were no vitals filed for this visit. Physical Exam Assessment/Plan [1] No past medical history on file. [2] Past Surgical History: Procedure Laterality Date SECTION, CLASSIC 1988 [3] No family history on file. [4] Current Outpatient Medications on File Prior to Visit Medication Sig Dispense Refill atomoxetine (Strattera) 40 MG capsule Take 1 capsule by mouth daily. Black Pepper-Turmeric (Turmeric Curcumin) 5-1000 MG capsule busPIRone (Buspar) 10 MG tablet Take 1 tablet (10 mg) by mouth in the morning and 1 tablet (10 mg) in the evening and 1 tablet (10 mg) before bedtime. (Patient not taking: Reported on 10/30/2024) 270 tablet 3 diclofenac (Voltaren) 1 % topical gel Voltaren 1 % topical gel APPLY 2 GRAMS TO THE AFFECTED AREA(S) BY TOPICAL ROUTE 4 TIMES PER DAY escitalopram (Lexapro) 10 MG tablet Take 1 tablet (10 mg) by mouth daily. (Patient not taking: Reported on 10/30/2024) 90 tablet 3 fluconazole (Diflucan) 150 MG tablet Take 1 tablet by mouth daily. Take one tab now. Repeat in 7 days if symptoms persist. 2 tablet 0 montelukast (Singulair) 10 MG tablet Take 1 [...] daily before breakfast. 90 tablet 3 rizatriptan CALL CENTER ANALYST (Maxalt-CALL CENTER ANALYST) 10 MG disintegrating tablet Dissolve 1 tablet [...] daily. Take with food. 90 capsule 3 No current facility-administered medications on file prior to visit. documented in this encounter Plan of Treatment [...] documented as of this encounter Care Teams Legal Consultant Relationship Specialty Start Date End Date Violet Braxton APRN [address] [place] [address] PCP - General 07/18/20 documented as of this encounter
--- OUTSIDE RECORDS SUMMARY | 2024-11-13 15:41 | XMS_ITS | Encounter Summary ---
Author Organization Healthcare Address [address] [place] [address] Care Team Providers Care Data Warehouse Architect Name Role Phone Violet Braxton APRN Primary Care Provider +1- [phone] Encounter Details Date Type Department Care Team (Late st Contact Info) Description 11/07/2024 Orders Only [facility] [address] [place] [address] Violet Braxton APRN [address] [place] [address] Other screening mammogram (Primary Dx); History of bilateral breast implants Social History Tobacco Use Types Packs/Day Years [...] any time in the past 12 m [facility], were you homeless or living in a half-way (including now)? No 10/30/2024 Utilities Answer Date Recorded In the past 12 months has th e [employer], gas, oil, or water company threatened to [...] Mammography Breast Screening Tomosynthesis Bilateral Imaging Routine Other screening mammogram History of bilateral breast implants Expected: 11/07/2024 (Approximate), Expires: 05/11/2026 documented as of this encounter Visit Diagnoses Diagnosis Other screening mammogram- Primary History of bilateral breast implants Breast replaced by other means documented in this encounter Additional Health Concerns Assessment Noted Time PHQ-9 Depression Total Score: 4 10/31/19 25 8:01 AM EDT A fall risk assessment has been complete d for the patient 10/30/2024 7:55 AM EDT A Body Mass Index follow-up plan has been documented for the patient 10/30/2024 8:42 AM EDT documented as of this encounter Care Teams Data Warehouse Architect Relationship Specialty Start Date End Date Violet Braxton APRN [address] [place] [id number] PCP - General 07/18/20 documented as of this encounter
--- OUTSIDE RECORDS SUMMARY | 2024-11-13 15:41 | XMS_ITS | Encounter Summary ---
Author Organization Healthcare Address [address] [place] [address] Care Team Providers Care Channel Program Manager Name Role Phone Violet Braxton APRN Primary Care Provider +1 [phone] Encounter Details Date Type Department Care Team [...] time in the past 12 m [facility], were you homeless or living in a custodial (including now)? No 10/30/2024 Utilities Answer Date Recorded In the past 12 months has th e [employer], gas, oil, or water company threatened to [...] doing things Several days 10/30/2024 8:01 AM JORDANT Susy Daniel Feeling down, depressed, or hopeless Several days 10/30/2024 8:01 AM JORDANT Susy Daniel Patient Health Questionnaire -2 Score 2 10/30/2024 8:01 AM JORDANT Susy Daniel * Question Answer Date of Assessment Author Trouble falling or staying asleep, or sleeping too much Not at all 10/30/2024 8:01 AM JORDANSusy Son Feeling tired or having little energy More [...] Wish to be (Past 1 Month) No 7:55 AM Susy Sanz 2. Non-Specific Active Suici jessica Thoughts (Past 1 Month) No 10/30/2024 7:55 AM Susy Sanz 6. Suicidal Behavior (Lifetime) No 5 7:55 AM EDT Susy Daniel documented as [...] documented as of this encounter Care Teams Channel Program Manager Relationship Specialty Start Date End Date Violet Braxton APRN [address] [place] [address] PCP - General 07/18/20 documented as of this encounter
--- OUTSIDE RECORDS SUMMARY | 2024-11-13 15:42 | XMS_ITS | Encounter Summary ---
Author Organization Healthcare Address [address] [place] [address] Care Team Providers Care Quarter Supervisor Name Role Phone Violet Braxton APRN Primary Care Provider [phone] Reason for Visit * Reason Comments Med Refill Encounter Details Date Type Department Care Team (Late st Contact Info) Description 02/04/2021 [facility] [address] [place] [address] Violet Braxton APRN [address] [place] [address] Social History Tobacco Use Types [...] documented as of this encounter Care Teams Quarter Supervisor Relationship Specialty Start Date End Date Violet Braxton, C[place]TON [address] [place] [address] PCP - General 07/18/20 documented as of this encounter
--- OUTSIDE RECORDS SUMMARY | 2024-11-13 15:42 | XMS_ITS | Clinical Summary ---
Author Organization Healthcare Address [address] [place] [address] Care Team Providers Care Clam Shucking Machine Tender Name Role Phone Violet Braxton [...] 90 tablet 3 05/25/19 25 026 Active Additional Information Patient not taking.Reported on 10/30/2024 rizatriptan ACCESS ANALYST (Maxalt-ACCESS ANALYST) 10 MG disintegrating tablet Dissolve 1 [...] symptoms persist. 2 tablet 10/31/19 25 Active atorvastatin (Lipitor) 10 MG tablet Take 1 tablet by mouth daily. 90 tablet 3 11/01/19 25 026 Active Active Problems No known active problems Encounters Date Type Department Care Team Description 11/07/2024 Orders Only [facility] [address] [place] [address] Violet Braxton, TABLEAU ARCHITECT Other screening mammogram (Primary Dx); History of bilateral breast implants 11/07/2024 Orders Only [facility] [address] [place] [address] Violet Braxton, TABLEAU ARCHITECT 10/31/2024 Orders Only [facility] [address] [place] [address] Violet Braxton, TABLEAU ARCHITECT 10/30/2024 7:40 AM EDT Office Visit [facility] [address] [place] [address] Violet Braxton, TABLEAU ARCHITECT Annual physical exam (Primary Dx); Chronic migraine without aura without status migrainosus, not intractable; Major depressive disorder, recurrent, moderate (CMS/HCC); Vaginal yeast infection 10/30/2024 Orders Only [facility] [address] [place] [address] Violet Braxton, TABLEAU ARCHITECT Breast screening (Primary Dx) 10/30/2024 Telephone [facility] [address] [place] [address] Violet Braxton, TABLEAU ARCHITECT 10/30/2024 Travel 10/17/2024 Orders Only [facility] [address] [place] [place] [address] Violet Braxton, TABLEAU ARCHITECT Annual physical exam (Primary Dx) 10/17/2024 Orders Only [facility] [address] [place] [address] Violet Braxton, TABLEAU ARCHITECT Screening mammogram for breast cancer (Primary Dx) from Last 3 Months Immunizations Immunization Administration [...] any time in the past 12 m [facility], were you homeless or living in a residential (including now)? No 10/30/2024 Utilities Answer Date [...] 01/11/2018 UKY-Zoster Vaccines (1 of 2) 01/11/2018 [id number] Vaccine (4 - season) 2024 12/30/2021, 06/07/2020, 05/10/2020 UKY-Influenza Vaccine (#1) 11/05/202402/264, 05/16/2023, 11/29/2017, Additional history exists UKY-Breast Cancer [...] 5.9(H) <5.7 % 09/02/2023 1:20 PM EDT [facility] Blood Venous blood specimen / [...] Adults <6.0% Children and Adolescents <7.5% Source: [place] [employer]. Standards of medical care in diabetes,2017. Diabetes Care.2017:40 (suppl 1):S1-S135. HbA1c assay performed by an ion-exchange chromatography method that is certified traceable to the DCCT. Violet Braxton TABLEAU ARCHITECT LAB BLOOD ORDERABLES Final Result Performing Organization Address City/State/[facility] Co de Phone Number [facility] [address] [place] [id number] * MAMMOGRAPHY EXTERNAL RESULTS (04/11/2023) Anatomical Region Laterality Modality Mammography Narrative 04/11/2023 Ordered by an unspecified provider. us External Provider IMG BI PROCEDURES Final Result * COLONOSCOPY EXTERNAL RESULT (03/02/2018) Anatomical Region Laterality Modality Endoscopy Narrative 03/02/2018 Ordered by an unspecified provider. us External Provider GI PROCEDURE ORDERABLES Final Result from Last 3 Months or Most Recently Relevant to Health Maintenance Insurance [facility] Care Teams Clam Shucking Machine Tender Relationship Specialty Start Date End Date Violet Braxton APRN [address] [place] [address] PCP - General 07/18/20
--- OUTSIDE RECORDS SUMMARY | 2024-11-13 15:42 | XMS_ITS | Encounter Summary ---
Author Organization Healthcare Address [address] [place] [address] Care Team Providers Care Gas Derrick Operator Name Role Phone Violet Braxton APRN Primary Care Provider +1- [phone] Reason for Visit * Reason Comments Med Refill Encounter Details Date Type Department Care Team (Late st Contact Info) Description 01/24/2021 [facility] [address] [place] [address] Violet Braxton APRN [address] [place] [address] Social History Tobacco Use Types [...] documented as of this encounter Care Teams Gas Derrick Operator Relationship Specialty Start Date End Date Violet Braxton APRN [address] [place] [address] PCP - General 07/18/20 documented as of this encounter
== END 2024-11-13 23:59 | disposition home or self-care (01) ==
LOC: RAD 15:39
PROVIDERS: PCP Nurse Practitioner Family; Visit Provider Nurse Practitioner Family
DX: Z12.31 Encounter for screening mammogram for malignant neoplasm of breast (principal); R92.323 Mammographic fibroglandular density, bilateral breasts; Z98.82 Breast implant status
CPT/HCPCS: 77063; 77067

== ENCOUNTER 2024-11-30 12:45 | Outpatient (CLI) | payer OTHER, SELFPAY ==
--- OUTSIDE RECORDS SUMMARY | 2024-10-30 07:40 | XMS_ITS | Encounter Summary ---
Author Organization Healthcare Address [address] [place] [address] Care Team Providers Care Services Executive Name Role Phone Violet Braxton APRN Primary Care Provider +1- [phone] Reason for Visit * Reason Comments Annual Exam Encounter Details Date Type Department Care Team (Late st Contact Info) Description 10/30/2024 7:40 AM EDT Office Visit [facility] [address] [place] [address] Violet Braxton APRN [address] [place] [address] Annual physical exam (Primary Dx); Chronic migraine without aura without status migrainosus, not intractable; Major depressive disorder, recurrent, moderate (CMS/HCC); Vaginal yeast infection Social History Tobacco Use Types Packs/Day Years Used Date Smoking Tobacco: Never Passive Smoke Exposure: Past Smokeless Tobacco: Never Alcohol Use Standard Drinks/Week Comments Not Currently 0 (1 standard drink = 0.6 oz pur e alcohol) PHQ-2 Answer Date Recorded Patient Health Questionnaire-2 Score 2 10/30/2024 PHQ-9 Answer Date Recorded Patient Health Questionnaire-9 Score 4 10/30/2024 Humiliation, Afraid, Rape, and Kick questionnair e Answer Date Recorded Within the last year, have y ou been afraid of your partner or ex-partner? No 10/30/2024 Within the last year, have y ou been humiliated or emotionally abused in other ways by your partner or ex-partner? No Within the last year, have y ou been kicked, hit, slapped, or otherwise physically hurt by your partner or ex-partner? No 10/30/2024 Within the last year, have y ou been raped or forced to have any kind of sexual activity by your partner or ex-partner? No 10/30/2024 Hunger Vital Sign Answer Date Recorded Within the past 12 months, y ou worried that your food would run out before you got the money to buy more. Never true 10/31/19 25 Within the past 12 months, t he food you bought just didn't last and you didn't have money to get more. Never true 10/30/2024 PRAPARE - Transportation Answer Date Re corded In the past 12 months, has l ack of transportation kept you from medical appointments or from getting medications? No 10/06 In the past 12 months, has l ack of transportation kept you from meetings, work, or from getting things needed for daily living? No 10/30/2024 Housing Stability Vital Sign Answer Teo e Recorded In the last 12 months, was t here a time when you were not able to pay the mortgage or rent on time? No 10/30/2024 In the past 12 months, how m any times have you moved where you were living? 0 10/30/2024 At any time in the past 12 m [facility], were you homeless or living in a skilled nursing (including now)? No 10/30/2024 Utilities Answer Date Recorded In the past 12 months has e [employer], [employer], oil, or water [employer] threatened to shut off services in your home? No 10/30/2024 PHQ-2A Answer Date Recorded Patient Health Questionnaire-2 Score 3 08/19/2022 Comments Unknown Sex and Gender Information Value Date Recorded Sex Assigned at Female 01/04/2022 5:23 PM EDT Legal Sex Female 7:57 PM EDT Gender Identity Female 01/04/2022 5:23 PM EDT Sexual Orientation Straight 01/04/2022 5: 23 PM EDT documented as of this encounter Last Filed Vital Signs Vital Sign Reading Time Taken Comments Blood Pressure 104/74 10/30/2024 7:53 AM EDT Pulse 70 10/30/2024 7:53 AM EDT Temperature 36.8 C (98.2 F) 10/30/2024 7:53 AM EDT Respiratory Rate 16 10/30/2024 7:53 AM EDT Oxygen Saturation 97% 10/30/2024 7:53 AM EDT Inhaled Oxygen Concentration - - Weight 74.7 kg (164 lb 10.9 oz) 10/30/2024 7:53 AM EDT Height 160 cm (5' 3 ) 10/30/2024 7:53 AM EDT Body Mass Index 29.17 10/30/2024 7:53 AM EDT documented in this encounter Functional Status * Over the past 2 weeks, how often have you been bothered by any of the following problems? Question Answer Date of Assessment Author Little interest or pleasure in doing things Several days 10/30/2024 8:01 AM Susy Sanz Feeling down, depressed, or hopeless Several days 10/30/2024 8:01 AM Suys Sanz Patient Health Questionnaire -2 Score 2 10/30/2024 8:01 AM Susy Sanz * Question Answer Date of Assessment Author Trouble falling or staying asleep, or sleeping too much Not at all 10/30/2024 8:01 AM Susy Sanz Feeling tired or having little energy More than half the days 10/30/2024 8:01 AM Susy Sanz Poor appetite or overeating Not at all 10/30/2024 8: 01 AM Susy Sanz Feeling bad about yourself - or that you are a failure or have let yourself or your family down Not at all 10/30/2024 8:01 AM Susy Sanz Trouble concentrating on things, such as reading the newspaper or watching television Not at all 10/30/2024 8:01 AM Susy Sanz Moving or speaking so slowly that other people could have noticed? Or the opposite - being so fidgety or restless that you have been moving around a lot more than usual. Not at all 10/30/2024 8:01 AM Susy Sanz Thoughts that you would be better off or hurting yourself in some way Not at all 10/30/2024 8:01 AM Susy Sanz Patient Health Questionnaire-9 Score 4 10/30/2024 8:01 AM Susy Sanz * Calculated C-SSRS Risk Score (Lifetime/Recent) Answer Date of Assessment Author No Risk Indicated 10/30/2024 7:55 AM EDT Susy Bill * How difficult have these problems made it for you to do your work, take care of things at home, or get along with other people? Answer Date of Assessment Author Somewhat difficult 10/30/2024 8:01 AM EDT Susy King * How difficult have these problems made it for you to do your work, take care of things at home, or get along with other people? Answer Date of Assessment Author Somewhat difficult 10/30/2024 8:01 AM JORDANT Susy King * Question Answer Date of Assessment Author 1. Wish to be (Past 1 Month) No 025 7:55 AM Susy Sanz 2. Non-Specific Active Suici jessica Thoughts (Past 1 Month) No 10/30/2024 7:55 AM Susy Sanz 6. Suicidal Behavior (Lifetime) No 7:55 AM Susy Sanz documented as of this encounter Miscellaneous Notes * Progress Notes - Violet Braxton, CLAYTON - 10/30/2024 7:40 AM EDT Subjective Jody Robin Vega Pt is here for annual exam and is doing well physically but still under great deal stress with daughter Is going to counsleing now and thinks that is helping and her work is less stressful so that isbetter She is UTD on josie, colon and had hyst so no pap Discussed her lipids at length and she is agreeable to taking med now Had fall and hurt left shoulder but much better now Ms. Vega is here today for their annual visit. Past Medical History[1] Surgical History[2] Family History[3] Social History Socioeconomic History Marital status: Spouse name: Not on file Number of children: Not on file Years of education: Not on file Highest education level: Not on file Occupational History Not on file Tobacco Use Smoking status: Never Passive exposure: Past Smokeless tobacco: Never Vaping Use Vaping status: Never Used Substance and Sexual Activity Alcohol use: Not Currently Drug use: Never Sexual activity: Yes Partners: Male control/protection: Female Sterilization Other Topics Concern Not on file Social History Narrative Not on file Social Drivers of Health Financial Resource Strain: Not on file Food Insecurity: No Food Insecurity (10/30/2024) Hunger Vital Sign Worried About Running Out of Food in the Last Year: Never true Ran Out of Food in the Last Year: Never true Transportation Needs: No Transportation Needs (10/30/2024) PRAPARE - Transportation Lack of Transportation (Medical): No Lack of Transportation (Non-Medical): No Physical Activity: Not on file Stress: Not on file Social Connections: Unknown (12/13/2022) Received from [facility] Family and Community Support Help with Day-to-Day Activities: Not on file Lonely or Isolated: Not on file Intimate Partner Violence: Not At Risk (10/30/2024) Humiliation, Afraid, Rape, and Kick questionnaire Fear of Current or Ex-Partner: No Emotionally Abused: No Physically Abused: No Sexually Abused: No Housing Stability: Low Risk (10/30/2024) Housing Stability Vital Sign Unable to Pay for Housing in the Last Year: No Number of Times Moved in the Last Year: 0 Homeless in the Last Year: No Medications Ordered Prior to Encounter[4] Allergies[5] Health Maintenance Due Topic Date Due UKY-HIV Screening Never done [facility]Y-Hepatitis C Screening Never done UKY-Hepatitis B Vaccines (1 of 3 - 19+ 3-dose series) Never done [facility]Y-Cervical Cancer Screening Never done UKY-Pneumococcal Vaccine: 50+ Years (1 of 1 - PCV) Never done UKY-Zoster Vaccines (1 of 2) Never done FIY-SBCIS-66 Vaccine ( - 2023- season) 2023 UKY-Influenza Vaccine (1) 11/05/2024 All medications have been reviewed today. The following portions of the patient's chart were reviewed in this encounter and updated as appropriate: past medical history, surgical history, family history, tobacco history, allergies, and medications Over the last 2 weeks, how often have you been bothered by any of the following problems? Little interest or pleasure in doing things: Several days Feeling down, depressed, or hopeless: Several days Trouble falling or staying asleep, or sleeping too much: Not at all Feeling tired or having little energy: More than half the days Poor appetite or overeating: Not at all Feeling bad about yourself - or that you are a failure or have let yourself or your family down: Not at all Trouble concentrating on things, such as reading the newspaper or watching television: Not at all Moving or speaking so slowly that other people could have noticed? Or the opposite - being so fidgety or restless that you have been moving around a lot more than usual.: Not at all Thoughts that you would be better off or hurting yourself in some way: Not at all Patient Health Questionnaire-9 Score: 4 Review of Systems Constitutional: Negative. HENT: Negative. Eyes: Negative. Respiratory: Negative. Cardiovascular: Negative. Gastrointestinal: Negative. Endocrine: Negative. Genitourinary: Negative. Musculoskeletal: Negative. Neurological: Negative. Psychiatric/Behavioral: Negative. Objective Vitals: 10/30/24 0753 BP: 104/74 Pulse: 70 Resp: 16 Temp: 36.8 ??C (98.2 ??F) SpO2: 97% Physical Exam Vitals and nursing note reviewed. Constitutional: Appearance: She is normal weight. HENT: Right Ear: Tympanic membrane normal. Left Ear: Tympanic membrane normal. Nose: Nose normal. Mouth/Throat: Mouth: Mucous membranes are moist. Pharynx: Oropharynx is clear. Eyes: Conjunctiva/sclera: Conjunctivae normal. Pupils: Pupils are equal, round, and reactive to light. Cardiovascular: Rate and Rhythm: Normal rate and regular rhythm. Pulses: Normal pulses. Heart sounds: Normal heart sounds. Pulmonary: Effort: Pulmonary effort is normal. Breath sounds: Normal breath sounds. Abdominal: Palpations: Abdomen is soft. Musculoskeletal: General: Normal range of motion. Cervical back: Normal range of motion. Skin: General: Skin is warm. Neurological: General: No focal deficit present. Mental Status: She is alert and oriented to person, place, and time. Psychiatric: Mood and Affect: Mood normal. Behavior: Behavior normal. Thought Content: Thought content normal. Judgment: Judgment normal. } Assessment/Plan Assessment & Plan Annual physical exam doing well but under stress Chronic migraine without aura without status migrainosus, not intractable Migraines tremdously better with topamax Major depressive disorder, recurrent, moderate (CMS/HCC) stable is in counseling Vaginal yeast infection Orders: fluconazole (Diflucan) 150 MG tablet; Take 1 tablet by mouth daily. Take one tab now. Repeat in 7 days if symptoms persist. The patient was counseled on Lifestyle Counseling: Healthy diet limiting red meat and processed foods, Visit dentist 2 or more times per year, Visit optometry or ophthalmology according to age/conditions, If you drink alcohol, use in moderation. Less than 7 drinks per week for women, less than 14 drinks per week for men. , Weight loss advised, options discussed, caloric needs and healthy food choices, Intermittent fasting, Vaccine counseling for age, Age appropriate screenings, Mental health, stress management, Age appropriate safety counseling, Sexual health and safety, Sleep hygiene discussed, and Sunscreen use/monitor for changing skin lesions Violet Braxton APRN [1] History reviewed. No pertinent past medical history. [2] Past Surgical History: Procedure Laterality Date SECTION, CLASSIC 1988 [3] History reviewed. No pertinent family history. [4] Current Outpatient Medications on File Prior to Visit Medication Sig Dispense Refill atomoxetine (Strattera) 40 MG capsule Take 1 capsule by mouth daily. Black Pepper-Turmeric (Turmeric Curcumin) 5-1000 MG capsule diclofenac (Voltaren) 1 % topical gel Voltaren 1 % topical gel APPLY 2 GRAMS TO THE AFFECTED AREA(S) BY TOPICAL ROUTE 4 TIMES PER DAY montelukast (Singulair) 10 MG tablet Take 1 tablet (10 mg) by mouth nightly. 90 tablet 3 Multiple Vitamins-Minerals (MULTI FOR HER 50+ PO) ondansetron (Zofran) 8 MG tablet TAKE ONE TABLET BY MOUTH EVERY 8 HOURS NEEDED FOR NAUSEA AND VOMITING 30 tablet 1 pantoprazole (Protonix) 40 MG EC tablet Take 1 tablet (40 mg) by mouth daily before breakfast. 90 tablet 3 rizatriptan SCIENCE JOB TITLES (Maxalt-SCIENCE JOB TITLES) 10 MG disintegrating tablet Dissolve 1 tablet on the tongue as needed for migraine. 9 tablet 3 topiramate (Topamax) 50 MG tablet Take 1 tablet (50 mg) by mouth in the morning and 1 tablet (50 mg) before bedtime. 180 tablet 3 traZODone (Desyrel) 50 MG tablet Take 1 tablet (50 mg) by mouth daily. 90 tablet 3 triamcinolone (Nasacort Allergy 24HR) 55 MCG/ACT nasal inhaler 1 (one) time each day. venlafaxine XR (Effexor-XR) 150 MG 24 hr capsule Take 1 capsule (150 mg) by mouth daily. Take with food. 90 capsule 3 busPIRone (Buspar) 10 MG tablet Take 1 tablet (10 mg) by mouth in the morning and 1 tablet (10 mg) in the evening and 1 tablet (10 mg) before bedtime. (Patient not taking: Reported on 10/30/2024) 270 tablet 3 escitalopram (Lexapro) 10 MG tablet Take 1 tablet (10 mg) by mouth daily. (Patient not taking: Reported on 10/30/2024) 90 tablet 3 No current facility-administered medications on file prior to visit. [5] No Known Allergies documented in this encounter Plan of Treatment Not on file documented as of this encounter Visit Diagnoses Diagnosis Annual physical exam- Primary Routine general medical examination at a health care facility Chronic migraine without aura without status migrainosus, not intractable Major depressive disorder, recurrent, moderate (CMS/HCC) Major depressive disorder, recurrent episode, moderate Vaginal yeast infection Candidiasis of vulva and vagina documented in this encounter Additional Health Concerns Assessment Noted Time PHQ-9 Depression Total Score: 4 10/31/19 25 8:01 AM EDT A fall risk assessment has been complete d for the patient 10/30/2024 7:55 AM EDT A Body Mass Index follow-up plan has been documented for the patient 10/30/2024 8:42 AM EDT documented as of this encounter Care Teams Services Executive Relationship Specialty Start Date End Date Violet Braxton APRN [address] [place] [id number] PCP - General 07/18/20 documented as of this encounter
--- OUTSIDE RECORDS SUMMARY | 2024-12-03 11:07 | XMS_ITS | Encounter Summary ---
Author Organization Healthcare Address [address] [place] [address] Care Team Providers Care Lettuce Cutter Name Role Phone Violet Braxton APRN Primary Care Provider +1- [phone] Encounter Details Date Type Department Care Team (Late st Contact Info) Description 10/30/2024 Telephone [facility] [address] [place] [address] Violet Braxton APRN [address] [place] [address] Social History Tobacco Use Types [...] Indicated 10/30/2024 7:55 AM Susy Hooper * How difficult have these problems made it for you to do your work, take care of things at home, or get along with other people? Answer Date of Assessment Author Somewhat difficult 10/30/2024 8:01 AM Susy Crawford * How difficult have these problems made [...] Pls advise. Thank you! Best contact number: [phone] (mobile) Optimal time of day to reach caller: ANYTIME Additional comments/information from caller: None Note: Please do not reply to this message. Follow-up communication and further actions as a result of this message need to be communicated with the patient directly, if the patient is not active onMyChart. If the patient is active on MyChart, they will receive notification of the communication/outcome via [employer]. documented in this encounter Plan of Treatment [...] documented as of this encounter Care Teams Lettuce Cutter Relationship Specialty Start Date End Date Violet Braxton APRN [address] [place] [phone] PCP - General 07/18/20 documented as of this encounter
--- OUTSIDE RECORDS SUMMARY | 2024-12-03 11:07 | XMS_ITS | Encounter Summary ---
Author Organization Healthcare Address [address] [place] [address] Care Team Providers Care Merchandise Shopper Name Role Phone Violet Braxton APRN Primary Care Provider +1 [phone] Encounter Details Date Type Department Care Team [...] any time in the past [address] [facility], were you homeless or living in a prison (including now)? No 10/30/2024 Utilities Answer Date Recorded In the past 12 months has th e [employer], gas, oil, or water company threatened to [...] documented as of this encounter Care Teams Merchandise Shopper Relationship Specialty Start Date End Date Violet Braxton APRN [address] [place] [address] PCP - General 07/18/20 documented as of this encounter
--- OUTSIDE RECORDS SUMMARY | 2024-12-03 11:07 | XMS_ITS | Encounter Summary ---
Author Organization Healthcare Address [address] [place] [address] Care Team Providers Care Internet Programmer Name Role Phone Violet Braxton APRN Primary Care Provider Reason for Visit * Reason Comments Med Refill Encounter Details Date Type Department Care Team (Late st Contact Info) Description 03/10/2022 Refill [facility] [address] [place] [address] Violet Braxton APRN [address] [place] [address] Generalized anxiety disorder Social History [...] documented as of this encounter Care Teams Internet Programmer Relationship Specialty Start Date End Date Violet Braxton APRN [address] [place] [address] PCP - General 07/18/20 documented as of this encounter
--- OUTSIDE RECORDS SUMMARY | 2024-12-03 11:08 | XMS_ITS | Encounter Summary ---
Author Organization Healthcare Address [address] [place] [address] Care Team Providers Care [place] Tribunal Member Name Role Phone Violet Braxton APRN Primary Care Provider +1- [phone] Reason for Visit * Reason Comments Med Refill Encounter Details Date Type Department Care Team (Late st Contact Info) Description 12/19/2020 Refill [facility] [address] [place] [address] Violet Braxton APRN [address] [place] [address] Social History Tobacco Use Types [...] documented as of this encounter Care Teams [place] Tribunal Member Relationship Specialty Start Date End Date Violet Braxton APRN [address] [place] [address] PCP - General 07/18/20 documented as of this encounter
--- OUTSIDE RECORDS SUMMARY | 2024-12-03 11:08 | XMS_ITS | Encounter Summary ---
Author Organization Healthcare Address [address] [place] [address] Care Team Providers Care Equities Analyst Name Role Phone Violet Braxton APRN Primary Care Provider +1 [phone] Encounter Details Date Type Department Care Team (Late st Contact Info) Description 10/31/2024 Orders Only [facility] [address] [place] [address] Violet Braxton APRN [address] [place] [address] Social History Tobacco Use [...] any time in the past 12 m [facility], were you homeless or living in a alf (including now)? No 10/30/2024 Utilities Answer Date [...] Notes * Progress Notes - Violet Braxton, ICE CREAM VENDOR - 10/31/2024 7:32 AM EDT Subjective Jody [...] file Social Connections: Unknown (12/13/2022) Received from [facility] Family and Community Support Help with Day-to-Day [...] UKY-Zoster Vaccines (1 of 2) Never done [id number] Vaccine ( - 2023- season) 2023 UKY-Influenza [...] daily before breakfast. 90 tablet 3 rizatriptan WELD LAY OUT WORKER (Maxalt-WELD LAY OUT WORKER) 10 MG disintegrating tablet Dissolve 1 [...] documented as of this encounter Care Teams Equities Analyst Relationship Specialty Start Date End Date Violet Braxton APRN [address] [place] [address] PCP - General 07/18/20 documented as of this encounter
--- OUTSIDE RECORDS SUMMARY | 2024-12-03 11:08 | XMS_ITS | Encounter Summary ---
Author Organization Healthcare Address [address] [place] [address] Care Team Providers Care Plastic Extruding Machine Operator Name Role Phone Violet Braxton APRN Primary Care Provider +1- [phone] Encounter Details Date Type Department Care Team (Late st Contact Info) Description 11/07/2024 Orders Only [facility] [address] [place] [address] Violet Braxton APRN [address] [place] [address] Social History Tobacco Use Types [...] any time in the past 12 m [facility], were you homeless or living in a [...] documented as of this encounter Care Teams Plastic Extruding Machine Operator Relationship Specialty Start Date End Date Violet Braxton APRN [address] [place] [address] PCP - General 07/18/20 documented as of this encounter
--- OUTSIDE RECORDS SUMMARY | 2024-12-03 11:08 | XMS_ITS | Encounter Summary ---
Author Organization Healthcare Address [address] [place] [address] Care Team Providers Care Analytical Statistician Name Role Phone Violet Braxton APRN Primary Care Provider [phone]- [phone] Encounter Details Date Type Department Care Team (Late st Contact Info) Description 10/17/2024 Orders Only [facility] [address] [place] [address] Violet Braxton APRN [address] [place] [address] Annual physical exam (Primary Dx) [...] place to sleep or slept in a detention (including now)? No 09/02/2023 PHQ-9 Answer Date [...] time in the past 12 m [facility], were you homeless or living in a detention (including now)? No 05/22/2024 Utilities Answer Date Recorded In the past 12 months has th e [employer], gas, oil, or water company threatened to [...] documented as of this encounter Care Teams Analytical Statistician Relationship Specialty Start Date End Date Violet Braxton APRN [address] [place] [phone] PCP - General 07/18/20 documented as of this encounter
--- OUTSIDE RECORDS SUMMARY | 2024-12-03 11:08 | XMS_ITS | Encounter Summary ---
Author Organization Healthcare Address [address] [place] [address] Care Team Providers Care Manager Oncology Name Role Phone Violet Braxton APRN Primary Care Provider [phone]- [phone] Reason for Visit * Reason Comments Med Refill Encounter Details Date Type Department Care Team (Late st Contact Info) Description 01/24/2021 [facility] [address] [place] [address] Violet Braxton APRN [address] [place] [address] Social History Tobacco Use Types [...] as of this encounter Care Teams Manager Oncology Relationship Specialty Start Date End Date Violet Braxton APRN [address] [place] [address] PCP - General 07/18/20 documented as of this encounter
--- OUTSIDE RECORDS SUMMARY | 2024-12-03 11:08 | XMS_ITS | Clinical Summary ---
Author Organization Healthcare Address [address] [place] [address] Care Team Providers Care Pie Cutter Name Role Phone Violet Braxton APRN [...] Information Patient not taking.Reported on 10/30/2024 rizatriptan PETROLEUM REFINERY LABORER (Maxalt-PETROLEUM REFINERY LABORER) 10 MG disintegrating tablet Dissolve 1 tablet [...] Department Care Team Description 11/07/2024 Orders Only [facility] [address] [place] [phone] Violet Braxton, BOARD ATTENDANT Other screening mammogram (Primary Dx); History of bilateral breast implants 11/07/2024 Orders Only [facility] [address] [place] [address] Violet Braxton, BOARD ATTENDANT 10/31/2024 Orders Only [facility] [address] [place] [address] Violet Braxton, BOARD ATTENDANT 10/30/2024 7:40 AM EDT Office Visit [facility] [address] [place] [address] Violet Braxton, BOARD ATTENDANT Annual physical exam (Primary Dx); Chronic migraine without aura without status migrainosus, not intractable; Major depressive disorder, recurrent, moderate (CMS/HCC); Vaginal yeast infection 10/30/2024 Orders Only [facility] [address] [place] [address] Violet Braxton, BOARD ATTENDANT Breast screening (Primary Dx) 10/30/2024 Telephone [facility] [address] [place] [address] Violet Braxton, BOARD ATTENDANT 10/30/2024 Travel 10/17/2024 Orders Only [facility] [address] [place] [address] Violet Braxton, BOARD ATTENDANT Annual physical exam (Primary Dx) 10/17/2024 Orders Only [facility] [address] [place] [address] Violet Brxaton, BOARD ATTENDANT Screening mammogram for breast cancer (Primary Dx) [...] time in the past 12 m [facility], were you homeless or living in a group home (including now)? No 10/30/2024 Utilities Answer Date [...] 01/11/2018 [facility]-Zoster Vaccines (1 of 2) 01/11/2018 [id number] Vaccine (4 - season) 2024 12/30/2021, 06/07/2020, 05/10/2020 [facility]-Influenza Vaccine (#1) 11/05/202402/264, 05/16/2023, 11/29/2017, Additional history exists [facility]- SDOH Screenings 05/02/2025 [facility]-Adult SDOH Screenings 05/02/2025 10/30/2024 [facility]-Depression Screening 10/30/2025 10/30/2024, 0808/2024 [facility]-Breast Cancer Screening 11/13/2026 09/0 11/2024, 04/11/2023, 02/09/2018 Colonoscopy 03/02/2028 03/02/2018 [facility]-Colorectal Cancer Screening 03/02/2028 [...] Procedure Name Priority Date/Time Associated Diagnosis Comments MAMMOGRAPHY EXTERNAL RESULTS 11/13/2024 HEMOGLOBIN A1C Routine 09/02/2023 9:24 AM EDT Annual physical exam COLONOSCOPY EXTERNAL RESULT 03/02/2018 from Last 3 Months or Most Recently Relevant to Health Maintenance Results * Mammography External Results (11/13/2024) Anatomical Region Laterality Modality Mammography Narrative 11/13/2024 Ordered by an unspecified provider. us External Provider IMG BI PROCEDURES Final Result * (ABNORMAL) Hemoglobin A1c (09/02/2023 9:24 AM EDT) Hemoglobin A1c 5.9(H) <5.7 % 09/02/2023 1:20 PM EDT [facility] Blood Venous blood specimen / Unknown [...] Adults <6.0% Children and Adolescents <7.5% Source: [place] [employer]. Standards of medical care in diabetes,2017. Diabetes Care.2017:40 (suppl 1):S1-S135. HbA1c assay performed by an ion-exchange chromatography method that is certified traceable to the DCCT. Violte Braxton BOARD ATTENDANT LAB BLOOD ORDERABLES Final Result [facility] [address] [place] [id number] * COLONOSCOPY EXTERNAL RESULT (03/02/2018) Anatomical Region Laterality Modality Endoscopy Narrative 03/02/2018 Ordered by an unspecified provider. External Provider GI PROCEDURE ORDERABLES Final Result from Last 3 Months or Most Recently Relevant to Health Maintenance Insurance [facility] Care Teams Pie Cutter Relationship Specialty Start Date End Date Violet Braxton APRN [address] [place] [phone] PCP - General 07/18/20
--- OUTSIDE RECORDS SUMMARY | 2024-12-03 11:08 | XMS_ITS | Encounter Summary ---
Author Organization Healthcare Address [address] [place] [address] Care Team Providers Care Glass Forming Crew Member Name Role Phone Violet Braxton APRN Primary Care Provider [phone]- [phone] Encounter Details Date Type Department Care Team (Late st Contact Info) Description 11/07/2024 Orders Only [facility] [address] [place] [address] Violet Braxton APRN [address] [place] [address] Other screening mammogram (Primary Dx); [...] any time in the past 12 m [facility], were you homeless or living in a detention (including now)? No 10/30/2024 Utilities Answer Date Recorded In the past 12 months has th e [employer], gas, oil, or water company threatened to [...] documented as of this encounter Care Teams Glass Forming Crew Member Relationship Specialty Start Date End Date Violet Braxton APRN [address] [place] [phone] PCP - General 07/18/20 documented as of this encounter
--- OUTSIDE RECORDS SUMMARY | 2024-12-03 11:08 | XMS_ITS | Encounter Summary ---
Author Organization [facility] Address [address] [place] [address] Care Team Providers Care Service Station Cashier Name Role Phone Violet Braxton APRN Primary Care Provider Encounter Details Date Type Department Care Team (Late st Contact Info) Description 10/17/2024 Orders Only [facility] [address] [place] [address] Violet Braxton APRN [address] [place] [address] Screening mammogram for breast cancer [...] any time in the past 12 m [facility], were you homeless or living in [...] documented as of this encounter Care Teams Service Station Cashier Relationship Specialty Start Date End Date Violet Braxton APRN [address] [address] PCP - General 07/18/20 documented as of this encounter
--- OUTSIDE RECORDS SUMMARY | 2024-12-03 11:08 | XMS_ITS | Encounter Summary ---
Author Organization Healthcare Address [address] [place] [address] Care Team Providers Care Street Photographer Name Role Phone Violet Braxton APRN Primary Care Provider [phone] Reason for Visit * Reason Comments Med Refill Encounter Details Date Type Department Care Team (Late st Contact Info) Description 02/04/2021 Refill [facility] [address] [place] [address] Violet Braxton APRN [address] [place] [address] Social History Tobacco Use Types [...] documented as of this encounter Care Teams Street Photographer Relationship Specialty Start Date End Date Violet Braxton, [place] [address] [place] [address] PCP - General 07/18/20 documented as of this encounter
--- OUTSIDE RECORDS SUMMARY | 2024-12-03 11:08 | XMS_ITS | Encounter Summary ---
Author Organization Healthcare Address [address] [place] [address] Care Team Providers Care Cant Hooker Name Role Phone Violet Braxton APRN Primary Care Provider [phone]- [phone] Encounter Details Date Type Department Care Team (Late st Contact Info) Description 10/30/2024 Orders Only [facility] [address] [place] [address] Violet Braxton APRN [address] [place] [address] Breast screening (Primary Dx) Social [...] any time in the past 12 m [facility], were you homeless or living in a fci (including now)? No 10/30/2024 Utilities Answer Date [...] Susy Daniel 6. Suicidal Behavior (Lifetime) No 5 7:55 [...] documented as of this encounter Care Teams Cant Hooker Relationship Specialty Start Date End Date Violet Braxton APRN [address] [place] [address] PCP - General 07/18/20 documented as of this encounter
== END 2024-11-30 23:59 ==
LOC: LAB.DROPOF 12-03 11:01
PROVIDERS: PCP Nurse Practitioner; Visit Provider Nurse Practitioner
DX: N39.0 Urinary tract infection, site not specified (principal)
CPT/HCPCS: 87086; 87088; 87186